=== PATIENT | female | born 1935 | race Caucasian/White ===

== ENCOUNTER 2016-11-29 10:06 | Emergency (ER) | payer OTHER, MEDICARE ==
[~2016-11-29] VITALS: Ht 137.2 cm; Wt 62.6 kg
[~2016-11-29 10:06] MED LIST: AMLODIPINE10 MG PO; CENTRUM SILVER1 TA1 PO; DOK100 M1 PO; FISH OIL CONCEN1 SGL PO; LOVENOX 4040 MG/0.4 SC; MAGNESIUM250 M1 PO; OMEPRAZOLE40 MG PO; PERCOCET 325 MG1 TA2 PO; PERCOCET 5-3251 EACH PO; VICODIN5-300 PO; VITAMIN D32000 I1 PO
--- NOTE | 2016-11-29 10:47 | ED MVC/FALL/TRAUMA COMPLAINT ---
History of Present Illness General Chief Complaint: Fall Stated Complaint: R SIDED PAIN S/P FALL Source: patient Exam Limitations: no limitations Vital Signs & Intake/Output Vital Signs & Intake/Output Vital Signs Date Time Temp Pulse Resp B/P Pulse O2 O2 Flow FiO2 Ox Delivery Rate 11/29 1314 98.2 93 18 168/72 98 Room Air 11/29 1021 97.0 72 20 148/70 98 Room Air Room Air Allergies Coded Allergies: NO KNOWN ALLERGIES (06/12/16) Reconcile Medications Amlodipine Besylate (Amlodipine) 10 MG TABLET 1 TAB PO DAILY BP (Reported) Multivitamin, Minerals, and (Centrum Silver) 1 TAB TAB 1 TAB PO DAILY SUPPLEMENT (Reported) Omeprazole 40 MG CAPSULE.DR 1 CAP PO DAILY HEARTBURN (Reported) Oxycodone HCl/Acetaminophen (Percocet 5-325 MG Tablet) 5 MG-325 MG TABLET 1 TAB PO BID PRN PAIN Promethazine HCl 6.25 MG/5 ML SYRUP 5 ML PO TID UNKNOWN (Reported) Triage Note: PT TO ED S/P "I TRIPPED OVER THE CAT". C/O RIGHT UPPER BACK PAIN. PT AMBULATORY TO TRIAGE WITH CANE, GAIT SLOW BUT STEADY. Triage Nurses Notes Reviewed? yes HPI: 80-year-old female arrived to triage the [facility] complaining of right rib pain after sustaining a fall at home. She states she was walking into her living room and her carpet was all bunched up due to the cats playing on it. She tripped and had a mechanical fall. She landed on her right side hitting her back against the floor. She denies hitting her head and she remembers the entire event. She denies any head neck chest or abdominal pain. She has full range of motion in all her extremities. The pain is in the right side back area. Worse with inspiration, movement and palpation. 09/01. tylenol ordered for pain. (CARLITOS RAMÍREZ APRN) Past History Travel History Traveled to [place] past 21 day No Medical History Any Pertinent Medical History? see below for history Neurological: NONE EENT: NONE Cardiovascular: hypertension, hyperlipidemia Respiratory: NONE Gastrointestinal: NONE Hepatic: NONE Renal: NONE Musculoskeletal: degen joint disease, osteoarthritis, osteoporosis Psychiatric: NONE Endocrine: NONE Blood Disorders: NONE Cancer(s): NONE TRAIN SYSTEM OPERATOR/Reproductive: NONE History of MRSA: No History of VRE: No History of CDIFF: No Influenza Vaccine: 08/23/15 Surgical History Surgical History: hysterectomy, knee replacement (b/l), shoulder surgery Psychosocial History Who do you live with Spouse Services at Home None What is your primary language Sami Tobacco Use: Never used ETOH Use: denies use Illicit Drug Use: denies illicit drug use Family History Hx Contributory? No (CARLITOS RAMÍREZ APRN) Review of Systems Review of Systems Constitutional: Reports: no symptoms. Eyes: Reports: no symptoms. Ears, Nose, Throat, Mouth: Reports: no symptoms. Respiratory: Reports: no symptoms. Cardiovascular: Reports: no symptoms. Gastrointestinal/Abdominal: Reports: no symptoms. Genitourinary: Reports: no symptoms. Musculoskeletal: Reports: see HPI, back pain. Skin: Reports: no symptoms. Neurological/Psychological: Denies: no symptoms. All Other Systems: Reviewed and Negative (CARLITOS RAMÍREZ APRN) Physical Exam Physical Exam General Appearance: well developed/nourished, alert, awake, anxious, mild distress Head: atraumatic, normal appearance Eyes: Bilateral: normal appearance, PERRL, EOMI. Ears, Nose, Throat, Mouth: hearing grossly normal, moist mucous membrane, Tympanic normal Neck: normal inspection, supple, full range of motion, normal alignment Respiratory: normal breath sounds, chest non-tender, no respiratory distress Cardiovascular: regular rate/rhythm, normal peripheral pulses Peripheral Pulses: 2+ radial (R), 2+ radial (L), 2+ tibialis posterior (R), 2+ tibialis posterior ( L), 2+ dorsalis pedis (R), 2+ dorsalis pedis (L) Gastrointestinal: normal bowel sounds, soft, non-tender Back: right posterior rib/back pain- see diagram Extremities: normal range of motion, pelvis stable Neurologic/Psych: no motor/sensory deficits, awake, alert, oriented x 3, normal gait, normal mood/affect Skin: intact, normal color, warm/dry Diagram Body: 1) Tenderness with no erythema or bruising Core Measures ACS in differential dx? No Severe Sepsis Present: No Septic Shock Present: No (CARLITOS RAMÍREZ APRN) Progress Differential Diagnosis: pnemothorax, RIB FRACTURE OR CONTUSION Plan of Care: Tylenol and ibuprofen for pain in the emergency department. Also to take at home has needed for mild pain and Percocet has needed for more severe pain. Diagnostic Imaging: Viewed by Me: Radiology Read. Discussed w/RAD: Radiology Read. Comments: PATIENT: DON ROTHMAN PRESENT AGE: 80 PATIENT ACCOUNT NO: [id number] : 35 LOCATION: [facility] ORDERING PHYSICIAN: CARLITOS RAMÍREZ APRN SERVICE DATE: 11/29/16 EXAM TYPE: RAD - XRY-CHEST XRAY, PA AND LATERAL; XRY-RIBS UNILATERAL-RIGHT EXAMINATION: XR CHEST XR RIBS, RIGHT CLINICAL INFORMATION: 80-year-old female, status post fall, complaining of posterior right-sided rib pain. COMPARISON: Chest done on 09/22/2015. Chest done on 04/12/2014. TECHNIQUE: 2 views of the chest. Frontal, oblique views of the right hemithoracic ribs (total of 4 images). FINDINGS: CHEST AND RIGHT-SIDED RIBS: Bibasilar linear airspace disease is present, new since prior study, may represent hypoventilatory, atelectatic changes. The remainder of the lung seay bilaterally appear clear, unchanged. There is specifically no evidence of any hemopneumothorax or lung contusion identified. The cardiomediastinal silhouette is within normal limits. Lower thoracic compression deformity is present, unchanged since 04/12/2014. The right hemithoracic rib series shows minimally displaced fracture involving the posterior lateral aspect of the right 9th rib. IMPRESSION: 1. Minimally displaced fracture seen involving the posterior lateral aspect of the right 9th rib. 2. No radiographic evidence of any superimposed acute hemopneumothorax or lung contusion. 3. Nonspecific bibasilar airspace disease is present likely represents hypoventilatory, atelectatic changes. DICTATED BY: RAI JACKSON MD DATE/TIME DICTATED:11/29/161240 HEALTH AND WELLNESS ADVISOR:JENNY DATE/TIME TRANSCRIBED:11/29/161240 CONFIDENTIAL, DO NOT COPY WITHOUT APPROPRIATE AUTHORIZATION. <Electronically signed in Other Vendor System> SIGNED BY: RAI JACKSON MD 11/29/16 1302 Tylenol only took away some of the pain so Motrin was given also. Explained x- ray results to patient and son. We'll give prescription for Percocet to go home with and instructions to follow up with Anderson Cordero MD on Thursday. Also gave instructions on deep breathing exercises. Case discussed with Dr. Crowe (CARLITOS RAMÍREZ APRN) Departure Departure Time of Disposition: 1311 Disposition: HOME OR SELF CARE Condition: Stable Clinical Impression Primary Impression: Rib fracture Qualifiers: Encounter type: initial encounter Rib fracture type: single rib Fracture type: closed Laterality: right Qualified Code: S22.31XA - Fracture of one rib, right side, initial encounter for closed fracture Referrals: ANABEL GARG,ANDERSON (PCP/Family) Additional Instructions: Please follow up with Anderson Cordero MD this week. Take Tylenol or ibuprofen as needed for mild pain. Please take Percocet as needed for more moderate to severe pain. I would start off with a half a tablet of Percocet before taking a whole one until you know how you feel. Every hour to 2 hours please shielded your right side with a pillow and take 10 good deep breaths. To this for the next 3-5 days. Please return to the emergency department for any increased pain, shortness of breath or any other concerning injuries. Departure Forms: Customer Survey General Discharge Information Prescriptions: Current Visit Scripts Oxycodone HCl/Acetaminophen (Percocet 5-325 MG Tablet) 1 TAB PO BID PRN PAIN #10 TAB (CARLITOS RAMÍREZ APRN) PA/MICROPHONE OPERATOR Co-Sign Statement Statement: ED Attending supervision documentation- [X] I saw and evaluated the patient. I have also reviewed all the pertinent lab results and diagnostic results. I agree with the findings and the plan of care as documented in the PA's/MICROPHONE OPERATOR's documentation. [X] I have reviewed the ED Record and agree with the PA's/MICROPHONE OPERATOR's documentation. [] Additions or exceptions (if any) to the PAs/MICROPHONE OPERATOR's note and plan are summarized below: [] (ZHANNA GARG,LILLI)
[2016-11-29] MEDS ORDERED: PROMETHAZI6.25 MG/5 PO (10:59)
--- NOTE | 2016-11-29 13:02 | RADIOLOGY REPORT ---
EXAMINATION: XR CHEST XR RIBS, RIGHT CLINICAL INFORMATION: 80-year-old female, status post fall, complaining of posterior right-sided rib pain. COMPARISON: Chest done on 09/22/2015. Chest done on 04/12/2014. TECHNIQUE: 2 views of the chest. Frontal, oblique views of the right hemithoracic ribs (total of 4 images). FINDINGS: CHEST AND RIGHT-SIDED RIBS: Bibasilar linear airspace disease is present, new since prior study, may represent hypoventilatory, atelectatic changes. The remainder of the lung seay bilaterally appear clear, unchanged. There is specifically no evidence of any hemopneumothorax or lung contusion identified. The cardiomediastinal silhouette is within normal limits. Lower thoracic compression deformity is present, unchanged since 04/12/2014. The right hemithoracic rib series shows minimally displaced fracture involving the posterior lateral aspect of the right 9th rib. IMPRESSION: 1. Minimally displaced fracture seen involving the posterior lateral aspect of the right 9th rib. 2. No radiographic evidence of any superimposed acute hemopneumothorax or lung contusion. 3. Nonspecific bibasilar airspace disease is present likely represents hypoventilatory, atelectatic changes.
[2016-11-29] MEDS ORDERED: PERCOCET 5-3251 EACH PO (13:12)
[2016-11-29 13:14] VITALS: BP 168/72
== END 2016-11-29 13:20 ==
LOC: ERH 10:06
DX: S22.31XA Fracture of one rib, right side, initial encounter for closed fracture (principal); R07.81 Pleurodynia; W18.09XA Striking against other object with subsequent fall, initial encounter; Y93.01 Activity, walking, marching and hiking
CPT/HCPCS: 71100-RT

== ENCOUNTER 2016-12-05 21:07 | Inpatient (IN) | payer OTHER, MEDICARE ==
[~2016-12-05] VITALS: Ht 162.6 cm; Wt 61.2 kg
[~2016-12-05 21:07] MED LIST changes: +PROMETHAZI6.25 MG/5 PO
[2016-12-05] MEDS ORDERED: CALCIUM500 M1 PO (21:38)
[2016-12-05] MEDS ORDERED: FISH OIL 1,2001 EACH PO (21:38)
--- NOTE | 2016-12-05 21:38 | NUR ---
TRIAGE: PT TO ER WITH SON C/C PAIN TO NECK, TRUNK AND ARMS S/P FALL SIGN CARPENTER. PT FELL IN BATHROOM AND WOULD NOT ALLOW SON TO HELP HER OR CALL 911. PT FELL TRIPPING OVER A CAT LAST WEEK AND FRACTURED HER RIBS. PT HAD EKG IN [place] AND WAS BROUGHT DIRECT TO [facility] RM 6 FOR ADDITIONAL EVAL. TAYLOR ANDERSON INTO EVALUATE.
[2016-12-05] MEDS ORDERED: MAGNESIUM250 M3 PO (21:39)
[2016-12-05] MEDS ORDERED: VITAMIN D2000 UNI1 PO (21:39)
--- NOTE | 2016-12-05 21:45 | ED MVC/FALL/TRAUMA COMPLAINT ---
History of Present Illness General Chief Complaint: Fall Stated Complaint: DIZZY, FELL IN BATHROOM, NECK, BACK AND CP, SOB Source: patient, family, old records Exam Limitations: no limitations Vital Signs & Intake/Output Vital Signs & Intake/Output Vital Signs Date Time Temp Pulse Resp B/P Pulse O2 O2 Flow FiO2 Ox Delivery Rate 12/05 2133 99.5 98 20 184/81 92 Room Air ED Intake and Output 12/06 0000 12/05 1200 Intake Total 0 Output Total Balance 0 Intake, Oral 0 Patient 135 lb Weight Allergies Coded Allergies: NO KNOWN ALLERGIES (06/12/16) Reconcile Medications Amlodipine Besylate (Amlodipine) 10 MG TABLET 1 TAB PO DAILY BP (Reported) Calcium Carbonate (Calcium) 500 MG CALCIUM (1,250 MG) TABLET 1 TAB PO DAILY SUPPLEMENT (Reported) Cholecalciferol (Vitamin D3) (Vitamin D) 2,000 UNIT TABLET 1 TAB PO DAILY SUPPLEMENT (Reported) Fish Oil/Dha/Epa (Fish Oil 1,200 MG Fish Oil) 1,200 MG-144 MG-216 MG CAPSULE 1 CAP PO DAILY SUPPLEMENT (Reported) Magnesium 250 MG TABLET 1 TAB PO DAILY SUPPLEMENT (Reported) Multivitamin, Minerals, and (Centrum Silver) 1 TAB TAB 1 TAB PO DAILY SUPPLEMENT (Reported) Omeprazole 40 MG CAPSULE.DR 1 CAP PO DAILY HEARTBURN (Reported) Oxycodone HCl/Acetaminophen (Percocet 5-325 MG Tablet) 5 MG-325 MG TABLET 1 TAB PO BID PRN PAIN Promethazine HCl 6.25 MG/5 ML SYRUP 5 ML PO TID UNKNOWN (Reported) Triage Note: TRIAGE: PT TO ER WITH SON C/C PAIN TO NECK, 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 PT FELL IN BATHROOM AND WOULD NOT ALLOW SON TO HELP HER OR CALL 911. PT FELL TRIPPING OVER A CAT LAST WEEK AND FRACTURED HER RIBS. PT HAD EKG IN [place] AND WAS BROUGHT DIRECT TO [facility] 6 FOR ADDITIONAL EVAL. TAYLOR ANDERSON INTO EVALUATE. Triage Nurses Notes Reviewed? yes Onset: Abrupt Duration: hour(s): (2), constant Timing: recent history Severity: moderate, severe Severity Numbers: 9 Injuries/Fall Location: neck, back Method of Injury: fall Loss of Consciousness: no loss of consciousness No Modifying Factors: none Associated Symptoms: dizziness HPI: 80-year-old female presents emergency room brought in by her son for evaluation after she had a unwitnessed fall in the bathroom just prior to arrival now presents complaining of upper and lower back and neck pain. She denies hitting her head no loss of consciousness. The patient denies any prodromal chest pain palpitations dizziness or lightheadedness prior to the fall and is unsure why she fell. However she states that she has felt dizzy since. The patient was seen here 6 days ago after she tripped over her cat and sustained a right ninth rib fracture. She denies any arm or leg pain no numbness or tingling. There's been no change in her mental status per her son she has not taken anything for her pain currently 9 out of [address] 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 No (ANGÉLICA MATHEWS) Review of Systems Review of Systems Constitutional: Reports: see HPI. All Other Systems: Reviewed and Negative Comments Review of systems: See HPI, All other systems negative. Constitutional, no chills no fever, no malaise HEENT: No visual changes no sore throat no congestion, Cardiovascular: No chest pain , no palpitation Skin,no rashes, no change in skin Respiratory: No dyspnea no cough no sputum GI: No nausea no vomiting, no diarrhea : No dysuria No hematuria, no frequency, no discharge Muscle skeletal: No joint pain, no joint swelling, back pain, neck pain, Neurologic: No numbness no headache Psych: No stress Heme/endocrine: No bruising no bleeding Immunology: No lymphadenopathy (ANGÉLICA MATHEWS) Physical Exam Physical Exam General Appearance: well developed/nourished, alert, awake, mild distress Comments: Well-developed well-nourished person in no acute distress HEENT: Normal EENT exam; PERRL, EOMI, no nystagmus. HEAD is atraumatic. moist mucous membranes. No raccoon eyes or moses signs no scalp hematoma or abrasions Neck: Supple, bilateral paracervical muscle tenderness no midline tenderness, normal range of motion without pain or tenderness Back: Nontender, no CVA tenderness. Full range of motion Cardiovascular: Regular rate and rhythms no murmurs rubs Respiratory: Chest tender to palpation over the right anterior chest wall and axilla, no crepitus, no ecchymosis, There were no bony deformities, no asymmetry. No respiratory distress. Patient speaking in full complete sentences. Breath sounds clear to auscultation bilaterally: NO W/R/R Abdomen: Soft, nontender nondistended, no appreciable organomegaly. Normal bowel sounds. No rebound/guarding, . Extremity: No edema, full range of motion of extremities, normal and equal pulses bilaterally, 5 out of 5 strength noted to bilateral upper and lower extremities Neuro: Alert oriented x3, motor sensory normal, cranial nerves II through XII grossly intact. There were no obvious focal neurologic abnormalities. Skin: No appreciable rash on exposed skin, skin is warm and dry. Psych: Mood and affect is normal, memory and judgment is normal. Core Measures ACS in differential dx? Yes Severe Sepsis Present: No Septic Shock Present: No (MONICA VAZQUEZ,ANGÉLICA) Progress Differential Diagnosis: aoritic dissection, abd injury, C/T/L spine injury, ext injury, ICH, pelvis injury, pnemothorax, spinal cord injury, ami, electrolyte abnoramlity Plan of Care: Orders Procedure Date/time Status Nothing by Mouth 12/06 B Active PT Evaluate & Treat 12/06 0700 Active Saline Lock 12/06 0010 Active Misc Message 12/06 0010 Active ED Holding Orders 12/06 0010 Active Admit to inpatient 12/06 0010 Active Vital Signs 12/06 0010 Active Code Status 12/06 0010 Active Patient Data 12/05 2353 Active Add-on Test (ER Only) 12/05 2347 Active MISTAKE 12/05 2323 Active CULTURE,URINE 12/05 2320 Active URINALYSIS 12/05 2227 Complete Intake & Output 12/05 2214 Active FingerStick- Glucose 01/13 2146 Active TROPONIN LEVEL 12/05 2111 Complete LIPASE 12/05 2111 Complete HEPATIC FUNCTION PANEL 12/05 2111 Complete CBC WITHOUT DIFFERENTIAL 12/05 2111 Complete BASIC METABOLIC PANEL 12/05 2111 Complete AMYLASE 12/05 2111 Complete EKG 12/05 2111 Active Current Medications Sig/Perla Start time Last Medication Dose Stop Time Status Admin Oxycodone/ 1 TAB ONCE ONE 12/05 2345 CAN Acetaminophen 12/05 2346 (Percocet) Laboratory Tests 12/05/162319: Urine Color YEL, Urine Clarity CLEAR, Urine pH 6.0, Ur Specific [place] 1.025, Urine Protein 30 H, Urine Ketones 15 H, Urine Nitrite POS H, Urine Bilirubin NEG, Urine Urobilinogen 0.2, Ur Leukocyte Esterase SMALL H, Ur Microscopic SEDIMENT EXAMINED, Urine RBC 1-3, Urine WBC 25-50 H, Ur Epithelial Cells FEW, Urine Mucus FEW, Urine Hemoglobin SMALL H, Urine Glucose NEG 12/05/162148: Anion Gap 13, Estimated GFR > 60, BUN/Creatinine Ratio 26.7 H, Glucose 138 H, Calcium 9.2, Total Bilirubin 0.6, Direct Bilirubin 0.3, AST 25, ALT 31, Alkaline Phosphatase 74, Troponin I 0.04, Total Protein 7.5, Albumin 4.1, Amylase 31, Lipase 81, CBC w Diff NO MAN DIFF REQ, RBC 4.16 L, MCV 71.9 L, MCH 23.0 L, RDW 16.5 H, MPV 7.6, Gran % 90.6 H, Lymphocytes % 6.3 L, Monocytes % 2.9, Eosinophils % 0.2, Basophils % 0 L, Absolute Granulocytes 14.2 H, Absolute Lymphocytes 1.0 L, Absolute Monocytes 0.5, Absolute Eosinophils 0, Absolute Basophils 0, PUBS MCHC 32.0 L Microbiology 12/05 2319 URINE ROUT: Urine Culture - RECD Labs ordered old records reviewed PTS H/H AT BASELINE Case was discussed with Dr. Lozano. 12/05/2016 10:43:17 PM discussed with the patient CAT scan results and labs to date c-collar was removed by me patient reports pain improved with morphine 12/05/2016 11:28:57 PM discussed with the patient at leave all of her lab results and CAT scan results. We attempted ambulation with the patient without success secondary to her pain patient was unable to ambulate around the ER. Discussed with her I believe again all of her lab results given her elevated white blood cell count, believe premature discharge would be medically harmful she lives at home alone requiring IV narcotics PT consult (MONICA VAZQUEZ,ANGÉLICA) Diagnostic Imaging: Viewed by Me: CT Scan. Discussed w/RAD: CT Scan. Radiology Impression: PATIENT: DON ROTHMAN PRESENT AGE: 80 PATIENT ACCOUNT NO: [id number] : 35 LOCATION: [facility] ORDERING PHYSICIAN: ANGÉLICA VAZQUEZ SERVICE DATE: 12/05/16 EXAM TYPE: CAT - CT CERV SPINE WO IV CONTRAST; CT HEAD WO IV CONTRAST EXAMINATION: CT HEAD WITHOUT CONTRAST CT CERVICAL SPINE WITHOUT CONTRAST CLINICAL INFORMATION: Fall and pain. Assess for intracranial bleed or fracture. COMPARISON: CT scan of the head 02/24. TECHNIQUE: Multidetector CT imaging of the head and cervical spine was performed without the use of intravenous contrast. Coronal and sagittal reformatted images were generated at the technologist workstation. DLP: 933.63 mGy-cm. FINDINGS: CT head: There is no evidence of acute intracranial hemorrhage or territorial infarction. No abnormal mass-effect or midline shift is seen. Campbell to white matter differentiation is well preserved. No extra-axial fluid collections are identified. There is commensurate prominence of the ventricles and sulci consistent with aabp-sq-xwiooqan diffuse volume loss. There are extensive areas of low attenuation in the periventricular and subcortical white matter bilaterally. These are most consistent with sequelae of chronic microvascular ischemic disease. There may be lacunar infarcts in the centra semiovale. There are no acute fractures. There is a small scalp contusion in the right parietal region. Bone mineralization is diffusely decreased. There are atheromatous calcifications of the cavernous internal carotid arteries. There have been bilateral lens extractions. The mastoid air cells and visualized portions of the paranasal sinuses are well-aerated. CT cervical spine: There is a mild dextroscoliosis. There are degenerative anterolistheses of C4 on C5 and C5 on C6. There is narrowing of intervertebral disc height at C6-C7. Vertebral body heights are maintained and there are no compression fractures. There are multilevel uncovertebral osteophytes and facet arthropathic changes. There is multilevel foraminal narrowing. The lateral masses of C1 and C2 are normally aligned and the dens is intact. Atlantooccipital alignment is normal. The prevertebral soft tissues are unremarkable. There are atheromatous calcifications of the aorta and carotid vessels. The visualized lung apices are well-aerated and there is no pneumothorax. IMPRESSION: 1. There are no acute bleeds or territorial infarcts. 2. There are sequelae of diffuse volume loss and severe chronic microvascular ischemic disease. 3. There is a scalp contusion in the right parietal region. No calvarial fractures are demonstrated. 4. There are no fractures or subluxations in the cervical spine. 5. There are multilevel spondylitic changes. DICTATED BY: DOMITILA CERDA MD DATE/TIME DICTATED:12/05/162223 TABLEAU DEVELOPER:JENNY DATE/TIME TRANSCRIBED:12/05/162223 CONFIDENTIAL, DO NOT COPY WITHOUT APPROPRIATE AUTHORIZATION. <Electronically signed in Other Vendor System> SIGNED BY: DOMITILA CERDA MD 12/05/162234, PATIENT: DON ROTHMAN PRESENT AGE: 80 PATIENT ACCOUNT NO: [id number] : 35 LOCATION: [facility] ORDERING PHYSICIAN: ANGÉLICA VAZQUEZ SERVICE DATE: 12/05/16 EXAM TYPE: CAT - CT ABD & PELVIS W/O IV CONTRAS; CT CHEST WO IV CONTRAST EXAMINATION: CT CHEST WITH CONTRAST CT ABDOMEN AND PELVIS WITH CONTRAST CLINICAL INFORMATION: Trauma. COMPARISON: CTA chest 12/2014. TECHNIQUE: Multidetector volumetric CT imaging of the chest, abdomen and pelvis was obtained after the administration of 50 mL of intravenous Ultravist without immediate adverse reactions. DLP: 555.59 mGy-cm. FINDINGS: Patient was imaged with the arms at the side which causes artifact. CT CHEST: Lungs: Low lung volume with bibasilar multifocal linear atelectasis. No dense consolidation. Mediastinum: No hematoma. No mass or inflammation. There is vascular calcification of the aorta and great vessels and coronary arteries. Pleura: Small right pleural effusion at lung base. Axilla: Streak artifact from bilateral shoulder replacement obscures the axillary areas in the upper chest. CT ABDOMEN AND PELVIS: LIVER, GALLBLADDER, AND BILIARY TREE: The liver is normal in size, shape, and attenuation. No focal hepatic lesion or biliary ductal dilatation is present. The gallbladder is unremarkable with no evidence of radiopaque gallstones, gallbladder wall thickening, or obvious pericholecystic inflammatory changes. PANCREAS: No acute change of the pancreas. No mass. No pancreatic duct dilatation. SPLEEN: Spleen normal in size and contour. No focal lesion. ADRENAL GLANDS: Adrenal glands are normal in size. No focal mass. KIDNEYS AND URETERS: Pedunculated cyst at the upper pole of the right kidney measuring 8 cm. No hydronephrosis. No renal or ureteral calculus. BLADDER: Unremarkable. GASTROINTESTINAL TRACT: No acute abnormality CT scan abdomen and pelvis. Moderate to large volume of stool in the colon. No bowel wall thickening or edema. No bowel obstruction. There is diverticulosis of the colon but no diverticulitis. The appendix is normal. The small bowel loops are unremarkable. MESENTERY: No focal inflammation. No free fluid. No free air. ABDOMINAL WALL: No significant hernia is appreciated. LYMPH NODES: Normal. VASCULAR: Atherosclerotic vascular calcifications of the aorta and iliac vessels without aneurysm. PELVIC VISCERA: Uterus is absent. No adnexal abnormality. OSSEOUS STRUCTURES: Compression deformity of T11 with near complete loss of height of the vertebrae. This is unchanged since prior CT study. No acute abnormality. No acute fracture. Multilevel degenerative spondylosis of the spine. Bilateral shoulder replacement. Orthopedic compression screw in the left hip. Multiple old healed rib fractures. IMPRESSION: No acute abnormality CT scan chest, abdomen and pelvis. DICTATED BY: SABRINA NÚÑEZ MD DATE/TIME DICTATED:12/05/162239 TABLEAU DEVELOPER:JENNY DATE/TIME TRANSCRIBED:12/05/162239 CONFIDENTIAL, DO NOT COPY WITHOUT APPROPRIATE AUTHORIZATION. <Electronically signed in Other Vendor System> SIGNED BY: SABRINA NÚÑEZ MD 12/05/162 Initial ED EKG: normal sinus at 80, no acute ST segment changes normal axis Prior EKG: unchanged (08/2015) (ANGÉLICA MATHEWS) Departure Departure Time of Disposition: 2350 Disposition: STILL A PATIENT Condition: Stable Clinical Impression Primary Impression: UTI (urinary tract infection) Secondary Impressions: Fall, Gait instability, Intractable back pain Referrals: ANDERSON LITTLE MD (PCP/Family) Departure Forms: Customer Survey General Discharge Information Admission Note Spoke With: AISHA OROSCO MD Documentation of Exam: Documentation of any treatments & extenuating circumstances including Concerns Regarding Discharge (functional status, medication knowledge or non-compliance, living conditions, etc.) that warrant an admission rather than observation: IV pain medication antibiotics physical therapy consult trend labs premature discharge would BE medically harmful given multiple falls this week patient lives at home alone and she is a fall risk (MONICA VAZQUEZ,ANGÉLICA) PA/FLOOR FINISHER Co-Sign Statement Statement: ED Attending supervision documentation- [] I saw and evaluated the patient. I have also reviewed all the pertinent lab results and diagnostic results. I agree with the findings and the plan of care as documented in the PA's/FLOOR FINISHER's documentation. [x] I have reviewed the ED Record and agree with the PA's/FLOOR FINISHER's documentation. [] Additions or exceptions (if any) to the PAs/FLOOR FINISHER's note and plan are summarized below: [] (MAVIS GARG,JHON Streeter)
[2016-12-05 22:04] LABS: ABSOLUTE BASOPHIL COUNT 0 /CUMM (0.0-0.2); ABSOLUTE EOSINOPHIL COUNT 0 /CUMM (0.0-0.7); ABSOLUTE GRANULOCYTE CT 14.2 /CUMM (1.4-6.5); ABSOLUTE MONOCYTE COUNT 0.5 /CUMM (0.10-0.60); BASOPHIL % 0 % (0.0-2.0); EOSINOPHIL % 0.2 % (0-5); HEMATOCRIT 29.9 % (37-47); MEAN CORPUSCULAR VOLUME 71.9 FL (81.0-99.0); MEAN PLATELET VOLUME 7.6 FL (7.4-10.4); PLATELET COUNT 449 /CUMM (130-400); RBC DISTRIBUTION WIDTH 16.5 % (11.5-14.5); RED BLOOD CELL CT 4.16 /CUMM (4.20-5.40); WHITE BLOOD CELL COUNT 15.7 /CUMM (4.8-10.8)
[2016-12-05 22:05] LABS: GRANULOCYTE % 90.6 % (42.2-75.2)
--- NOTE | 2016-12-05 22:15 | NUR ---
PT ASSISTED ON BEDPAN, CECILIA CARE PROVIDED.
--- NOTE | 2016-12-05 22:22 | NUR ---
PT MEDICATED PER EMAR.
--- NOTE | 2016-12-05 22:35 | CT SCAN REPORT ---
EXAMINATION: CT HEAD WITHOUT CONTRAST CT CERVICAL SPINE WITHOUT CONTRAST CLINICAL INFORMATION: Fall and pain. Assess for intracranial bleed or fracture. COMPARISON: CT scan of the head 02/24/2009. TECHNIQUE: Multidetector CT imaging of the head and cervical spine was performed without the use of intravenous contrast. Coronal and sagittal reformatted images were generated at the technologist workstation. DLP: 933.63 mGy-cm. FINDINGS: CT head: There is no evidence of acute intracranial hemorrhage or territorial infarction. No abnormal mass-effect or midline shift is seen. Campbell to white matter differentiation is well preserved. No extra-axial fluid collections are identified. There is commensurate prominence of the ventricles and sulci consistent with ccke-cb-syizvavn diffuse volume loss. There are extensive areas of low attenuation in the periventricular and subcortical white matter bilaterally. These are most consistent with sequelae of chronic microvascular ischemic disease. There may be lacunar infarcts in the centra semiovale. There are no acute fractures. There is a small scalp contusion in the right parietal region. Bone mineralization is diffusely decreased. There are atheromatous calcifications of the cavernous internal carotid arteries. There have been bilateral lens extractions. The mastoid air cells and visualized portions of the paranasal sinuses are well-aerated. CT cervical spine: There is a mild dextroscoliosis. There are degenerative anterolistheses of C4 on C5 and C5 on C6. There is narrowing of intervertebral disc height at C6-C7. Vertebral body heights are maintained and there are no compression fractures. There are multilevel uncovertebral osteophytes and facet arthropathic changes. There is multilevel foraminal narrowing. The lateral masses of C1 and C2 are normally aligned and the dens is intact. Atlantooccipital alignment is normal. The prevertebral soft tissues are unremarkable. There are atheromatous calcifications of the aorta and carotid vessels. The visualized lung apices are well-aerated and there is no pneumothorax. IMPRESSION: 1. There are no acute bleeds or territorial infarcts. 2. There are sequelae of diffuse volume loss and severe chronic microvascular ischemic disease. 3. There is a scalp contusion in the right parietal region. No calvarial fractures are demonstrated. 4. There are no fractures or subluxations in the cervical spine. 5. There are multilevel spondylitic changes.
--- NOTE | 2016-12-05 22:44 | NUR ---
TAYLOR ANDERSON AT BEDSIDE.
--- NOTE | 2016-12-05 23:22 | CT SCAN REPORT ---
EXAMINATION: CT CHEST WITH CONTRAST CT ABDOMEN AND PELVIS WITH CONTRAST CLINICAL INFORMATION: Trauma. COMPARISON: CTA chest 05/24/2015. TECHNIQUE: Multidetector volumetric CT imaging of the chest, abdomen and pelvis was obtained after the administration of 50 mL of intravenous Ultravist without immediate adverse reactions. DLP: 555.59 mGy-cm. FINDINGS: Patient was imaged with the arms at the side which causes artifact. CT CHEST: Lungs: Low lung volume with bibasilar multifocal linear atelectasis. No dense consolidation. Mediastinum: No hematoma. No mass or inflammation. There is vascular calcification of the aorta and great vessels and coronary arteries. Pleura: Small right pleural effusion at lung base. Axilla: Streak artifact from bilateral shoulder replacement obscures the axillary areas in the upper chest. CT ABDOMEN AND PELVIS: LIVER, GALLBLADDER, AND BILIARY TREE: The liver is normal in size, shape, and attenuation. No focal hepatic lesion or biliary ductal dilatation is present. The gallbladder is unremarkable with no evidence of radiopaque gallstones, gallbladder wall thickening, or obvious pericholecystic inflammatory changes. PANCREAS: No acute change of the pancreas. No mass. No pancreatic duct dilatation. SPLEEN: Spleen normal in size and contour. No focal lesion. ADRENAL GLANDS: Adrenal glands are normal in size. No focal mass. KIDNEYS AND URETERS: Pedunculated cyst at the upper pole of the right kidney measuring 8 cm. No hydronephrosis. No renal or ureteral calculus. BLADDER: Unremarkable. GASTROINTESTINAL TRACT: No acute abnormality CT scan abdomen and pelvis. Moderate to large volume of stool in the colon. No bowel wall thickening or edema. No bowel obstruction. There is diverticulosis of the colon but no diverticulitis. The appendix is normal. The small bowel loops are unremarkable. MESENTERY: No focal inflammation. No free fluid. No free air. ABDOMINAL WALL: No significant hernia is appreciated. LYMPH NODES: Normal. VASCULAR: Atherosclerotic vascular calcifications of the aorta and iliac vessels without aneurysm. PELVIC VISCERA: Uterus is absent. No adnexal abnormality. OSSEOUS STRUCTURES: Compression deformity of T11 with near complete loss of height of the vertebrae. This is unchanged since prior CT study. No acute abnormality. No acute fracture. Multilevel degenerative spondylosis of the spine. Bilateral shoulder replacement. Orthopedic compression screw in the left hip. Multiple old healed rib fractures. IMPRESSION: No acute abnormality CT scan chest, abdomen and pelvis.
--- NOTE | 2016-12-05 23:45 | NUR ---
AMBULATES WITHOUT DIFF REQUESTS PAIN MED SITS IN CHAIR MUCH MORE COMF.
--- NOTE | 2016-12-06 00:04 | History & Physical ---
GEORGE GARG,[facility] [place] 12/06/16 0004: General Information and HPI MD Statement: I have seen and personally examined DON ROTHMAN and documented this H&P. The patient is a 80 year old F who presented with a patient stated chief complaint of near syncopal episode. Source of Information: patient, family, old records Exam Limitations: no limitations History of Present Illness: 80 y/o F with PMHx of HTN, GERD, osteoarthritis, osteoporosis s/p bilateral total knee and bilateral total shoulder arthroplasties and left hip fracture s/p IM who presents after fall. This evening, several hours prior to current presentation, patient was standing in the bathroom and brushing her teeth when she passed out all of a sudden. She woke up about 30 seconds later and found herself on the floor in severe pain. It is unclear whether she lost consciousness during episode. She denies chest pain, palpitations, shortness of breath and lightheadedness leading up to the episode. She also denies bladder/ bowel incontinence and tongue biting during the episode and reports that she was not confused afterwards. Of note, patient has been having URI symptoms and decreased PO intake for the past few days leading up to current presentation. She was seen in the ED approximately 6 days ago after a mechanical fall in which she tripped over her cat and was diagnosed with right ninth rib fracture. She still has significant pain at the fracture site and has been taking opioids. She endorses constipation and reports that she has not had a bowel movement in two days. She denies dysuria but endorses increased urinary frequency and chills. Allergies/Medications Allergies: Coded Allergies: NO KNOWN ALLERGIES (06/12/16) Home Med list Amlodipine Besylate (Amlodipine) 10 MG TABLET 1 TAB PO DAILY BP (Reported) Calcium Carbonate (Calcium) 500 MG CALCIUM (1,250 MG) TABLET 1 TAB PO DAILY SUPPLEMENT (Reported) Cholecalciferol (Vitamin D3) (Vitamin D) 2,000 UNIT TABLET 1 TAB PO DAILY SUPPLEMENT (Reported) Fish Oil/Dha/Epa (Fish Oil 1,200 MG Fish Oil) 1,200 MG-144 MG-216 MG CAPSULE 1 CAP PO DAILY SUPPLEMENT (Reported) Magnesium 250 MG TABLET 1 TAB PO DAILY SUPPLEMENT (Reported) Multivitamin, Minerals, and (Centrum Silver) 1 TAB TAB 1 TAB PO DAILY SUPPLEMENT (Reported) Omeprazole 40 MG CAPSULE.DR 1 CAP PO DAILY HEARTBURN (Reported) Oxycodone HCl/Acetaminophen (Percocet 5-325 MG Tablet) 5 MG-325 MG TABLET 1 TAB PO BID PRN PAIN Promethazine HCl 6.25 MG/5 ML SYRUP 5 ML PO TID UNKNOWN (Reported) Past History Travel History Traveled to [place] past 21 day No Medical History Neurological: NONE EENT: NONE Cardiovascular: hypertension, hyperlipidemia Respiratory: NONE Gastrointestinal: NONE Hepatic: NONE Renal: NONE Musculoskeletal: degen joint disease, fracture (L hip s/p IMHS, R 9th rib), osteoarthritis, osteoporosis Psychiatric: NONE Endocrine: NONE Blood Disorders: NONE Cancer(s): NONE TRANSITIONS RN CARE COORDINATOR/Reproductive: uterine/bladder prolapse, stress urinary incontinence History of MRSA: No History of VRE: No History of CDIFF: No Isolation History: Standard Surgical History Surgical History: hysterectomy, knee replacement (b/l total knee arthroplasty), shoulder surgery, left hip IMHS Past Family/Social History Psychosocial History Where do you live? Home Who Do You Live With? self Services at Home: None Functional Ability ADLs Independent: dressing, eating, toileting, bathing. Ambulation: cane IADLs Independent: shopping, housework, finances, food prep, telephone, medication admin. Review of Systems Review of Systems Constitutional: Reports: chills, weakness. Denies: fever. EENTM: Reports: see HPI. Cardiovascular: Denies: chest pain, palpitations. Respiratory: Denies: short of breath. GI: Reports: constipation, nausea, vomiting. Denies: abdominal pain, diarrhea. Genitourinary: Reports: frequency. Denies: dysuria. Musculoskeletal: Reports: see HPI. Skin: Reports: no symptoms. Neurological/Psychological: Reports: no symptoms. Hematologic/Endocrine: Reports: no symptoms. Immunologic/Allergic: Reports: no symptoms. All Other Systems: Reviewed and Negative Exam & Diagnostic Data Last 24 Hrs of Vital Signs/I&O Vital Signs Date Time Temp Pulse Resp B/P Pulse O2 O2 Flow FiO2 Ox Delivery Rate 12/06 0205 97.6 110 20 114/66 91 Room Air 12/06 0106 97.6 100 18 165/77 93 Room Air 12/05 2134 99.5 98 20 184/81 92 Room Air Intake & Output 12/06 0800 12/06 0000 12/05 1600 Intake Total 0 Output Total Balance 0 Intake, Oral 0 Patient 61.235 kg Weight Physical Exam General Appearance Alert, Oriented X3, Mild Distress HEENT Dry Mucous Membranes Neck Supple Cardiovascular Normal S1, Normal S2, Tachycardic Lungs Clear to Auscultation Abdomen Soft, No Tenderness, Positive Bowel Sounds Neurological No Gross Focal Deficits Noted Extremities No Clubbing, No Cyanosis, No Edema Last 24 Hrs of Labs/Julio: Laboratory Tests 12/05/162319: Urine Color YEL, Urine Clarity CLEAR, Urine pH 6.0, Ur Specific [place] 1.025, Urine Protein 30 H, Urine Ketones 15 H, Urine Nitrite POS H, Urine Bilirubin NEG, Urine Urobilinogen 0.2, Ur Leukocyte Esterase SMALL H, Ur Microscopic SEDIMENT EXAMINED, Urine RBC 1-3, Urine WBC 25-50 H, Ur Epithelial Cells FEW, Urine Mucus FEW, Urine Hemoglobin SMALL H, Urine Glucose NEG 12/05/16 2149: Anion Gap 13, Estimated GFR > 60, BUN/Creatinine Ratio 26.7 H, Glucose 138 H, Calcium 9.2, Total Bilirubin 0.6, Direct Bilirubin 0.3, AST 25, ALT 31, Alkaline Phosphatase 74, Troponin I 0.04, Total Protein 7.5, Albumin 4.1, Amylase 31, Lipase 81, CBC w Diff NO MAN DIFF REQ, RBC 4.16 L, MCV 71.9 L, MCH 23.0 L, RDW 16.5 H, MPV 7.6, Gran % 90.6 H, Lymphocytes % 6.3 L, Monocytes % 2.9, Eosinophils % 0.2, Basophils % 0 L, Absolute Granulocytes 14.2 H, Absolute Lymphocytes 1.0 L, Absolute Monocytes 0.5, Absolute Eosinophils 0, Absolute Basophils 0, PUBS MCHC 32.0 L Microbiology 12/05 2319 URINE ROUT: Urine Culture - RECD Diagnostic Data EKG Results NSR HR 83 Probable left atrial abnormality Left axis deviation LVH with secondary repolarization abnormality QTc [address] HEAD AND CERVICAL SPINE W/O CONTRAST: 1. There are no acute bleeds or territorial infarcts. 2. There are sequelae of diffuse volume loss and severe chronic microvascular ischemic disease. 3. There is a scalp contusion in the right parietal region. No calvarial fractures are demonstrated. 4. There are no fractures or subluxations in the cervical spine. 5. There are multilevel spondylitic changes. CT CHEST/ABDOMEN/PELVIS W/O IV CONTRAST: No acute abnormality CT scan chest, abdomen and pelvis. Assessment/Plan Assessment: 80 y/o F with PMHx of HTN, GERD, osteoarthritis, osteoporosis s/p bilateral total knee and bilateral total shoulder arthroplasties and left hip fracture s/p IMHS who presents after fall. #Fall: Represents syncope/pre-syncope based on patient's symptoms. Differential includes cardiac arrhythmia, vasovagal syncope and orthostatic hypotension. CT Head/C-Spine/Chest/Abdomen/Pelvis with no acute fracture or abnormality. S/p bedside swallow eval. Initial troponin negative and EKG with no ST-T wave abnormalities. * Cardiology consulted. Appreciate their recs. * Transfer to telemetry for continuous cardiac monitoring to rule out arrhythmia. * ECHO ordered to evaluate for structural cardiac abnormalities. * Orthostatic vitals. * PT/OT consult. * Trend troponins and EKG. #UTI: Urinalysis significant for pyuria with WBC 25-50. Afebrile but with significant leukocytosis (WBC 15.7). S/p PO ciprofloxacin in the ED. * Follow UCx. * Start ceftriaxone 1 g IV QD. #Rib fracture: Fracture of right ninth rib. * Lidocaine 5% patch. * Tylenol 650 mg PO Q6H PRN for mild pain (scale 1-3) * Tylenol 1 g IV Q6H PRN for moderate pain (scale 4-6) * Morphine 2 mg IV Q4H PRN for severe pain (scale 7-10) #HTN: BP elevated to 184/81 on admission. * Continue prior to admission amlodipine 10 mg PO QD. #Osteoporosis: S/p bilateral total knee and shoulder arthroplasties and left hip fracture s/p IMHS. * Continue prior to admission vitamin D3 2 g PO QD and calcium carbonate 500 mg PO QD. #Constipation: Secondary to opioids that patient was receiving for rib fracture. * Aggressive bowel regimen with Miralax, Senokot and Docusate. #GERD: * Continue prior to admission omeprazole 40 mg PO QD. Diet: Heart Healthy Fluids: NS @ 75 cc/hr DVT PPx: HSQ and ALPs CODE: FULL As Ranked By This Provider Problem List: 1. Fall 2. UTI (urinary tract infection) 3. Right rib fracture 4. Constipation Core Measures/Miscellaneous Acute Coronary Syndrome ACS Diagnosis: No Cerebrovascular Accident CVA/TIA Diagnosis: No Congestive Heart Failure CHF Diagnosis: No Venous Thromboembolism VTE Risk Factors: Acute medical illness, Age > 40 VTE Prophylaxis Ordered Inpt: Mech & Pharm No Mech VTE prophylaxis d/t: No contraindications No VTE Pharm Prophylaxis d/t: No contraindications VTE Diagnosis: No VTE Type: NONE VTE Confirmed by (Test): NONE Severe Sepsis Severe Sepsis Present: No Septic Shock Septic Shock Present: No Miscellaneous Documentation Attending Case Discussed With: AISHA OROSCO MD Primary Care Physician: ANDERSON LITTLE MD Patient sees these Specialists Toe Puller Toby Nair MD Level of Patient Care: Telemetry KIRSTEN HER 12/06/16 0127: Resident Review Statement Resident Statement: examined this patient, discussed with tax intern, agreed with tax intern, discussed with family, reviewed EMR data (avail), discussed with nursing , discussed with case mgmt, reviewed images, amended to note Other Findings: 80-year-old woman presented with syncope, weakness and fall. Her past medical history significant for hypertension, gastroesophageal reflux disease and multiple joint replacements, osteoporosis (for scan on 2014 showed a T score of -2.6). Patient was at her normal state of health. Last week she had a mechanical fall which results in mechanical trauma and rib fracture on the right side. Patient was started on by mouth opiate pain medication that caused constipation. Patient reports progressive loss of appetite, poor by mouth intake, and 1 or 2 episodes of vomiting yesterday (mainly food no clots) and nauseousness. According to her son in addition to the aforementioned picture she had an episode of URI that's further decrease her by mouth intake and ambulation. Last evening patient blacked out, while she was brushing her teeth and fell in the bathroom. she denies any precrding SOb, palpitation, CP, lightheadedness. Immediately gained counsiousness and did not have focal neurologis deficit, toungue bite, or loss bladder or bowel control and was not confused afterward. Patient otherwise has been asymptomatic and denies fever, chills, urinary symptoms. ROS: complains of severe right-sided rib pain, weakness and constipation. Vital signs temperature of 99.5, pulse 98, respiratory 20, blood pressure 184/81 , saturation 92% in RA Ph/Ex: Anxious, and in mild-moderate distress. Sclrea pale, Mucous membrane dry; CVS: S1S2 regular; early systolic ejection murmur w/ radiation to neck; Lungs ( limited) clear; abd: hypoactiev, firm, no tenderness; No edema, no grosss abnormalities Pertinent Data: UA: Ketones 15, nitrate positive WBC 25-50 BEP: Sodium 131, potassium 4.1, BUN 16, creatinine 0.6, BUN creatinine ratio 26.7 WBC 15.7 with left shift but no bandemia, hemoglobin 9.6 MCV 71, hematocrit 29.[address] scan of the abdominopelvic and chest and cervical CT: Normal no acute pathology Head CT was negative EK NSRR, Left axis deviation, No acute ST,T seg change, no prolongation of the intervals Assessment and plan 81-year-old woman was admitted for syncope/pre-syncope possibly due to UTI and dehydration, and weakness. #1 syncope: Dehydraion Vs Arrhythmia Vs Vasovagal Vs Neurologic. Patient does not Have any focal neurologic. Dehydraion could actually percipitated her condition, however, arrhythmia should be R/O. Transfer to tele; 24 h playground monitor to R/O arrhythmia Cardiology consult-in the am to assess the cause of syncope/near-syncope Obtain Echo check troponin-negative fall percussion Check orthostatic Continue IV hydration with normal saline rate of 75-100 mL per hour #2 UTI Cefteriaxone 1000 mg IV daily Follow urine culture #3 hypertension Continue amlodipine 10 mg by mouth daily; start from today at 10 AM #4 constipation Stop all the opiate pain medication Continue IV hydration Started patient on full bowel regimen #5 GERD Continue omeprazole 40 mg by mouth daily #6 calcium deficiency and vitamin D deficiency Continue D3 2000 units daily Continue calcium carbonate 500mg daily Full code DVT prophylaxis enoxaparin 40 units subcutaneous daily AISHA OROSCO 12/06/16 0709: Attending MD Review Statement Attending Statement Attending MD Statement: examined this patient, discuss w/resident/PA/COMMUNITY ENGAGEMENT COORDINATOR, agreed w/resident/PA/COMMUNITY ENGAGEMENT COORDINATOR, reviewed EMR data (avail), reviewed images, amended to note Attending Assessment/Plan: CC: Near syncopal episode PMH: HTN, GERD, OA, osteoporosis Patient states that she has been having some upper respiratory symptoms and decreased by mouth intake since last 2-3 days. Today she felt dizzy and she does not recall how she fell down, she did not trip on anything next thing, all she remembers that she woke up on the floor. Patient's right-sided rib pain worsened after this fall. Otherwise she was ambulating well at home after her previous discharge from ER, 1 week back. Denies chest pain, palpitations, fever. Patient endorses chills and frequency in urination and constipation. Patient has not passed stool in last 2 days. Vitals: Afebrile, mild tachycardia, RR, BP, O2 saturation within normal range. On examination: A O 3, patient appears in pain. No acute distress, no focal neurological deficit, neck supple, no lymphadenopathy, mucosa dry. CVS: S1-S2, RRR. RS: Clear to auscultate. Abdomen: Soft, NT, ND, bowel sounds present, no dependent edema. Labs: CBC 15.7, hemoglobin 9.6, otherwise BMP and LFT unremarkable. EKG showed no acute changes. Imaging: CT head, CT cervical spine, CT chest, abdomen and pelvis: Shows no acute abnormality. A and P #1 presyncope / syncope : Patient does not recall the fall, but at the same time denies loss of consciousness. She has dizziness prior to fall, and only remembers waking up on the floor. Initially admitted on GEN med according to ER recommendation, but patient needs telemetry monitoring, 2-D echo, cardiac consult, trend cardiac enzymes, OT PT evaluation #2 UTI: Patient has significant leukocytosis, urinary frequency, an episode of chills at home. Obtain urine culture, continue ceftriaxone IV. Continue gentle hydration. #3 constipation: Probably secondary to opiates, continue senna, Dulcolax, MiraLAX. #4 continue her home medications, adequate pain control for recent rib fracture, DVT prophylaxis
--- NOTE | 2016-12-06 00:07 | NUR ---
BACK TO BED. MEDICATED WITH MORPHINE FOR RETURNING PAIN
--- NOTE | 2016-12-06 00:17 | NUR ---
MEDICATED WITH CIPRO ORDERED
--- NOTE | 2016-12-06 00:31 | NUR ---
HOUSESTAFF HERE TO EVALUATE
[2016-12-06 02:05] VITALS: BP 114/66
[2016-12-06 03:35] VITALS: BP 110/60
[2016-12-06 04:13] LABS: ABSOLUTE BASOPHIL COUNT 0 /CUMM (0.0-0.2); ABSOLUTE EOSINOPHIL COUNT 0 /CUMM (0.0-0.7); ABSOLUTE GRANULOCYTE CT 9.2 /CUMM (1.4-6.5); ABSOLUTE LYMPH COUNT 1.2 /CUMM (1.2-3.4); ABSOLUTE MONOCYTE COUNT 0.5 /CUMM (0.10-0.60); BASOPHIL % 0.3 % (0.0-2.0); EOSINOPHIL % 0.2 % (0-5); GRANULOCYTE % 83.7 % (42.2-75.2); HEMATOCRIT 32.5 % (37-47); MEAN CORPUSCULAR HGB 23.3 PG (27.0-31.0); MEAN CORPUSCULAR HGB CONC 32.4 G/DL (33.0-37.0); MEAN CORPUSCULAR VOLUME 71.8 FL (81.0-99.0); MEAN PLATELET VOLUME 7.1 FL (7.4-10.4); PLATELET COUNT 442 /CUMM (130-400); RBC DISTRIBUTION WIDTH 16.5 % (11.5-14.5); RED BLOOD CELL CT 4.53 /CUMM (4.20-5.40); WHITE BLOOD CELL COUNT 10.9 /CUMM (4.8-10.8)
[2016-12-06 04:23] LABS: PT 11.6 SEC (9.4-12.5); PTT 29 SEC (25-37)
--- NOTE | 2016-12-06 07:11 | Admission Certification ---
Admission Certification Certification Statement - As attending physician, I certify that at the time of - admission, based on clinical presentation, severity of - symptoms, need for further diagnostic testing and - therapeutic interventions, and risk of adverse outcomes - without in-hospital treatment, in my clinical assessment, - this patient requires an acute hospital stay for a minimum - of two nights or longer. I have also considered psychsocial - factors such as support system, advanced age, financial - issues, cognitive issues, and failed out-patient treatments, - past re-admission history, safety of patient, and lack of - compliance as applicable. Specific rationale supporting this admission is: fall, presyncope/syncope, UTI
[2016-12-06 08:22] VITALS: BP 130/60
[2016-12-06 10:48] LABS: PTT 63 SEC (25-37)
--- NOTE | 2016-12-06 12:37 | NUR ---
Eval canceled today. Nurse notes that pt is in a lot of pain, has not really been able to move. Pt approached by therapist in order to complete PT eval but notes that she is in too much pain to do anything. She feels that maybe in a day or 2 she may be able to move around but for now she is in unbearable pain. Will cont to follow in order to complete evaluation.
--- NOTE | 2016-12-06 12:41 | Cons- Cardiology ---
General Information and HPI Consulting Request Date of Consult: 12/06/16 Requested By: AISHA OROSCO MD Reason for Consult: Possible syncope and positive troponin I. Source of Information: patient, old records Exam Limitations: clinical condition, painful right side History of Present Illness: Mrs. Kyleigh Elaine is an 80-year-old female with a history of hypertension, dyslipidemia, gastroesophageal reflux disease, osteoarthritis, osteoporosis, s/p bilateral knee and bilateral total shoulder arthroplasties, left hip fracture s/p intra-medullary screw placement, multiple falls, s/p ninth right rib fracture after tripping over her cat at home on 11/29/2016 who returned to the ED last night following a suspected syncopal episode. After her 11/29/2016 emergency visit, she states that she remained in a lot of pain and was not taking well by mouth. She also developed upper respiratory symptoms that included a cough productive of whitish sputum. She denied any fever, chills, etc. Last night while getting ready for bed she had gone to the bathroom to brush her teeth and recalls feeling transiently "dizzy". She then "came to" on the floor without any urinary/fecal incontinence, but thinks she again hit her right side as this was very painful. She was aware of her surroundings, but felt she should seek medical evaluation. She denies any history of coronary, valvular, dysrhythmic/conduction disease, or cardiomyopathy. Allergies/Medications Allergies: Coded Allergies: NO KNOWN ALLERGIES (06/12/16) Home Med List: Amlodipine Besylate (Amlodipine) 10 MG TABLET 1 TAB PO DAILY BP (Reported) Calcium Carbonate (Calcium) 500 MG CALCIUM (1,250 MG) TABLET 1 TAB PO DAILY SUPPLEMENT (Reported) Cholecalciferol (Vitamin D3) (Vitamin D) 2,000 UNIT TABLET 1 TAB PO DAILY SUPPLEMENT (Reported) Fish Oil/Dha/Epa (Fish Oil 1,200 MG Fish Oil) 1,200 MG-144 MG-216 MG CAPSULE 1 CAP PO DAILY SUPPLEMENT (Reported) Magnesium 250 MG TABLET 1 TAB PO DAILY SUPPLEMENT (Reported) Multivitamin, Minerals, and (Centrum Silver) 1 TAB TAB 1 TAB PO DAILY SUPPLEMENT (Reported) Omeprazole 40 MG CAPSULE.DR 1 CAP PO DAILY HEARTBURN (Reported) Oxycodone HCl/Acetaminophen (Percocet 5-325 MG Tablet) 5 MG-325 MG TABLET 1 TAB PO BID PRN PAIN Promethazine HCl 6.25 MG/5 ML SYRUP 5 ML PO TID UNKNOWN (Reported) Review of Systems Review of Systems: A 14 point system review was obtained and was noncontributory, other than as above. Past History Travel History Traveled to [place] past 21 day No Medical History Blood Transfusion Hx: No Neurological: NONE EENT: NONE Cardiovascular: hypertension, hyperlipidemia Respiratory: NONE Gastrointestinal: NONE Hepatic: NONE Renal: NONE Musculoskeletal: degen joint disease, fracture (L hip s/p IMHS, R 9th rib), osteoarthritis, osteoporosis Psychiatric: NONE Endocrine: NONE Blood Disorders: NONE Cancer(s): NONE COUNSELING CENTER DIRECTOR/Reproductive: uterine/bladder prolapse, stress urinary incontinence Surgical History Surgical History: hysterectomy, knee replacement (b/l total knee arthroplasty), shoulder surgery L hip [facility] Psychosocial History Where Do You Live? Home Who Do You Live With? self Services at Home: None Smoking Status: Former Smoker Functional Ability ADLs Independent: dressing, eating, toileting, bathing. Ambulation: cane IADLs Independent: shopping, housework, finances, food prep, telephone, medication admin. Exam & Diagnostic Data Vital Signs and I&O Vital Signs Date Time Temp Pulse Resp B/P Pulse O2 O2 Flow FiO2 Ox Delivery Rate 12/06 0916 80 130/60 12/06 0822 98.1 80 20 130/60 90 Room Air 12/06 0800 92 Room Air 12/06 0335 98.2 94 20 110/60 91 Room Air 12/06 0332 Room Air 12/06 0205 97.6 110 20 114/66 91 Room Air 12/06 0106 97.6 100 18 165/77 93 Room Air 12/05 2134 99.5 98 20 184/81 92 Room Air Intake & Output 12/06 1600 12/06 0800 12/06 0000 12/05 1600 12/05 0800 12/05 0000 Intake Total 638 0 Output Total Balance 638 0 Intake, IV 538 Intake, Oral 100 0 Number 0 Bowel Movements Patient 135 lb 135 lb Weight Physical Exam: Well-developed, well-nourished elderly female in no acute distress with nasal oxygen in place. Vital signs: See above. HEENT: Normocephalic, atraumatic, EOMI, slightly dry mucous membranes. Neck: No JVD. Transmitted systolic murmur versus soft bilateral bruits. Lungs: Clear to auscultation. Heart: S1, S2 (regular) with grade 2/6 systolic ejection type murmur. No gallop or rub appreciated. PMI [facility]. Abdomen: Soft, nontender, positive bowel sounds. Extremities: No edema. Labs/Julio Results: Laboratory Tests 12/06 12/06 12/06 1005 0355 0355 Chemistry Sodium (137 - 145 mmol/L) 138 Potassium (3.5 - 5.1 mmol/L) 4.3 Chloride (98 - 107 mmol/L) 97 L Carbon Dioxide (22 - 30 mmol/L) 28 Anion Gap (5 - 16) 13 BUN (7 - 17 mg/dL) 13 Creatinine (0.5 - 1.0 mg/dL) 0.6 Estimated GFR (>60 ml/min) > 60 BUN/Creatinine Ratio (7 - 25 %) 21.7 Troponin I (< 0.11 ng/ml) 0.09 Coagulation PT (9.4 - 12.5 SEC) 11.6 INR (0.90 - 1.19) 1.11 APTT (25 - 37 SEC) 63 H 29 Hematology CBC w Diff MAN DIFF ORDERED WBC (4.8 - 10.8 /CUMM) 10.9 H RBC (4.20 - 5.40 /CUMM) 4.53 Hgb (12.0 - 16.0 G/DL) 10.6 L Hct (37 - 47 %) 32.5 L MCV (81.0 - 99.0 FL) 71.8 L MCH (27.0 - 31.0 PG) 23.3 L RDW (11.5 - 14.5 %) 16.5 H Plt Count (130 - 400 /CUMM) 442 H MPV (7.4 - 10.4 FL) 7.1 L Gran % (42.2 - 75.2 %) 83.7 H Lymphocytes % (20.5 - 51.1 %) 11.2 L Monocytes % (1.7 - 9.3 %) 4.6 Eosinophils % (0 - 5 %) 0.2 Basophils % (0.0 - 2.0 %) 0.3 Absolute Granulocytes (1.4 - 6.5 /CUMM) 9.2 H Absolute Lymphocytes (1.2 - 3.4 /CUMM) 1.2 Absolute Monocytes (0.10 - 0.60 /CUMM) 0.5 Absolute Eosinophils (0.0 - 0.7 /CUMM) 0 Absolute Basophils (0.0 - 0.2 /CUMM) 0 Platelet Estimate (ADEQUATE) INCREASED Hypochromic-Microcytic 1+ Ovalocytes 2+ PUBS MCHC (33.0 - 37.0 G/DL) 32.4 L 12/05 12/05 2320 2149 Chemistry Sodium (137 - 145 mmol/L) 131 L Potassium (3.5 - 5.1 mmol/L) 4.1 Chloride (98 - 107 mmol/L) 93 L Carbon Dioxide (22 - 30 mmol/L) 26 Anion Gap (5 - 16) 13 BUN (7 - 17 mg/dL) 16 Creatinine (0.5 - 1.0 mg/dL) 0.6 Estimated GFR (>60 ml/min) > 60 BUN/Creatinine Ratio (7 - 25 %) 26.7 H Glucose (65 - 99 mg/dL) 138 H Calcium (8.4 - 10.2 mg/dL) 9.2 Total Bilirubin (0.2 - 1.3 mg/dL) 0.6 Direct Bilirubin (< 0.4 mg/dL) 0.3 AST (14 - 36 U/L) 25 ALT (9 - 52 U/L) 31 Alkaline Phosphatase (<127 U/L) 74 Troponin I (< 0.11 ng/ml) 0.04 Total Protein (6.3 - 8.2 g/dL) 7.5 Albumin (3.5 - 5.0 g/dL) 4.1 Amylase (30 - 110 U/L) 31 Lipase (23 - 300 U/L) 81 Hematology CBC w Diff NO MAN DIFF REQ WBC (4.8 - 10.8 /CUMM) 15.7 H RBC (4.20 - 5.40 /CUMM) 4.16 L Hgb (12.0 - 16.0 G/DL) 9.6 L Hct (37 - 47 %) 29.9 L MCV (81.0 - 99.0 FL) 71.9 L MCH (27.0 - 31.0 PG) 23.0 L RDW (11.5 - 14.5 %) 16.5 H Plt Count (130 - 400 /CUMM) 449 H MPV (7.4 - 10.4 FL) 7.6 Gran % (42.2 - 75.2 %) 90.6 H Lymphocytes % (20.5 - 51.1 %) 6.3 L Monocytes % (1.7 - 9.3 %) 2.9 Eosinophils % (0 - 5 %) 0.2 Basophils % (0.0 - 2.0 %) 0 L Absolute Granulocytes (1.4 - 6.5 /CUMM) 14.2 H Absolute Lymphocytes (1.2 - 3.4 /CUMM) 1.0 L Absolute Monocytes (0.10 - 0.60 /CUMM) 0.5 Absolute Eosinophils (0.0 - 0.7 /CUMM) 0 Absolute Basophils (0.0 - 0.2 /CUMM) 0 PUBS MCHC (33.0 - 37.0 G/DL) 32.0 L Urines Urine Color (YEL,AMB,STR) YEL Urine Clarity (CLEAR) CLEAR Urine pH (5.0 - 8.0) 6.0 Ur Specific [place] (1.001 - 1.035) 1.025 Urine Protein (NEG,<30 MG/DL) 30 H Urine Ketones (NEG) 15 H Urine Nitrite (NEG) POS H Urine Bilirubin (NEG) NEG Urine Urobilinogen (0.1 - 1.0 EU/dl) 0.2 Ur Leukocyte Esterase (NEG) SMALL H Ur Microscopic SEDIMENT EXAMINED Urine RBC (0 - 5 /HPF) 1-3 Urine WBC (0 - 2 /HPF) 25-50 H Ur Epithelial Cells (NONE,FEW) FEW Urine Mucus (FEW,NONE) FEW Urine Hemoglobin (NEG) SMALL H Urine Glucose (N MG/DL) NEG Diagnostic Data EKG Results (12/06/2016) atrial fibrillation, PVCs, leftward axis, and LVH with repolarization abnormalities. Rhythm change when compared to previous tracing presses 12/05/2016). Other Results CT chest, abdomen, pelvis without contrast (12/05/2016) No acute abnormality CT scan chest, abdomen and pelvis. Assessment/Plan Assessment/Plan Elderly female who presented following a suspected syncopal episode following previous mechanical fall with right rib fracture 11/29/2016 with continued pain, decreased by mouth intake, upper respiratory symptoms etc., who is now complaining of urinary frequency, temperature maximum of 99.5, with laboratory work revealing an elevated WBC count with left shift and urine culture growing gram-negative rods, as well as, a transient episode of atrial fibrillation. Recommendations: * Continue on telemetry, follow-up troponins, follow-up electrocardiogram. * Continue IV hydration, antimicrobial therapy, and follow-up CXR in a.m. * Obtain echocardiogram to assess atrial size, degree of aortic stenosis, degree of left ventricular hypertrophy, left ventricular systolic/diastolic function, pulmonary pressure, etc. * Given the brief duration of atrial fibrillation, it is probably not necessary to maintain on anticoagulation. Naturally, if she has further paroxysms of atrial fibrillation full anticoagulation may well be indicated. * Continue prophylaxis for deep venous thrombosis. Further recommendations will follow, Thank you. Consult Acknowledgment - Thank you for your consult request.
[2016-12-06 16:00] VITALS: BP 142/66
[2016-12-06 23:55] VITALS: BP 140/70
--- NOTE | 2016-12-07 07:49 | PN- Housestaff ---
JUDI GARG,[facility] 12/07/16 0748: Subjective Follow-up For: Syncope Dehydration UTi Tele-Events Since Last Visit: Sinus Rythm 78-98 No overnight events Subjective: Ms Arizmendi was seen and examined this morning. She was seated on the chair beside the bed. She continues to complain of back pain. Pain is rated a 10 out of 10 in severity. Patient does state that the medication she is getting for the back pain does help. She is tolerating by mouth intake well. She continues to have a Muñoz which is draining well. She denies any fever, chills, nausea, vomiting. Review of Systems Constitutional: Reports: see HPI. Denies: chills, diaphoresis, weakness. Objective Last 24 Hrs of Vital Signs/I&O Vital Signs Date Time Temp Pulse Resp B/P Pulse O2 O2 Flow FiO2 Ox Delivery Rate 12/07 0901 91 160/80 12/07 0802 97.7 91 20 160/80 93 Room Air 12/07 0800 Room Air 12/07 0000 Nasal 2.0L Cannula 12/06 2355 97.9 100 20 140/70 92 Nasal 2.0L Cannula 12/06 1600 98.1 81 20 142/66 90 Room Air Intake & Output 12/07 1600 12/07 0800 12/07 0000 Intake Total 800 600 Output Total 550 1350 Balance 250 -750 Intake, IV 600 300 Intake, Oral 200 300 Output, Urine 550 1350 Physical Exam General Appearance: Alert, Oriented X3, Cooperative Cardiovascular: Normal S1, Normal S2 Lungs: Clear to Auscultation Abdomen: Normal Bowel Sounds, Soft, No Tenderness Neurological: Normal Speech Extremities: No Edema, Pain, tenderness with palpation, Right and left scapular areas. No focal deficits noted. Current Medications: Current Medications Sig/Perla Start time Last Medication Dose Route Stop Time Status Admin Acetaminophen 650 MG Q6P PRN 12/06 0130 AC PO Acetaminophen 1,000 MG Q6P PRN 12/06 0130 AC IV Amlodipine Besylate 10 MG DAILY 12/06 1000 AC 12/07 PO 0901 Calcium Carbonate 500 MG DAILY 12/06 1000 AC 12/07 PO 0901 Ceftriaxone Sodium 1,000 MG DAILY 12/06 1000 AC 12/07 IV 0901 Cholecalciferol 2,000 IU DAILY 12/06 1000 AC 12/07 PO 09 Docusate Sodium 100 MG BID 12/06 1000 AC 12/07 PO 0901 Fish Oil 1,050 MG DAILY 12/06 1000 AC 12/07 PO 0901 Heparin Sodium 5,000 UNIT Q8 12/06 2200 AC 12/07 (Porcine) SC 0524 Heparin Sodium 25,000 UNIT Q24H 12/06 0345 DC 12/06 (Porcine) IV 0411 Sodium Chloride 500 ML Lidocaine 1 PAT Q24H 12/06 0130 AC 12/07 EXT 0214 Morphine Sulfate 2 MG Q4P PRN 12/06 0315 AC 12/07 IV 0747 Multivitamins 1 TAB DAILY 12/06 1000 AC 12/07 PO 0901 Omeprazole 40 MG DAILY AC 12/06 0700 AC 12/07 PO 0523 Patient Medication 1 UNIT ONE NR 12/06 191 ME Teaching ED 12/06 2000 Polyethylene Glycol 17 GM AT BEDTIME 12/06 2200 AC 12/06 PO 191 Senna/Docusate Sodium 2 TAB AT BEDTIME 12/06 2200 AC 12/06 PO 1910 Sodium Chloride 1,000 ML Q13H 12/06 0200 AC 12/06 IV 1659 Last 24 Hrs of Lab/Julio Results Last 24 Hrs of Labs/Mics: Laboratory Tests 12/07/16 0650: Anion Gap 13, Estimated GFR > 60, BUN/Creatinine Ratio 18.0, CBC w Diff NO MAN DIFF REQ, RBC 4.16 L, MCV 72.1 L, MCH 23.5 L, RDW 16.5 H, MPV 7.8, Gran % 80.0 H, Lymphocytes % 14.0 L, Monocytes % 5.7, Eosinophils % 0.1, Basophils % 0.2, Absolute Granulocytes 6.8 H, Absolute Lymphocytes 1.2, Absolute Monocytes 0.5, Absolute Eosinophils 0, Absolute Basophils 0, PUBS MCHC 32.7 L 12/06/16 2200: APTT Cancelled Microbiology 12/06 1215 URINE ROUT: Urine Culture - RES Orders Radiology Findings: PATIENT: DON ROTHMAN PRESENT AGE: 80 PATIENT ACCOUNT NO: [id number] : 35 LOCATION: [facility] ORDERING PHYSICIAN: DAHLIA MENDIOLA MD SERVICE DATE: 12/07/16 EXAM TYPE: RAD - XRY-PORTABLE CHEST XRAY EXAMINATION: XR PORTABLE CHEST CLINICAL INFORMATION: Shortness of breath. COMPARISON: 11/29/2016 TECHNIQUE: Portable view of the chest was obtained. FINDINGS: Lungs remain hypoinflated and this patient with known right rib fractures. There are displaced right posterior 5th, 6th and 7th rib fractures. The fracture of the right posterior eighth rib is nondisplaced and the fracture of the right lateral ninth rib is minimally displaced. There are persistent linear opacities of atelectasis in the lingula, left lower lobe and right middle/lower lobes. Bibasilar atelectasis is slightly increased compared to 11/29/2016. No acute pulmonary consolidation, interstitial edema or pneumothorax. The trace right pleural effusion observed on the recent chest CT is difficult to visualize on this exam. Cardiomediastinal silhouette has stable size and contour. There is atherosclerotic calcification of the aorta. IMPRESSION: - Multiple recent right rib fractures. - Lungs remain hypoinflated with slightly increased bibasilar atelectasis compared to 11/29/2016. DICTATED BY: MIREILLE DODGE MD DATE/TIME DICTATED:12/07/161039 TOOL PLANNER:JENNY DATE/TIME TRANSCRIBED:12/07/161039 CONFIDENTIAL, DO NOT COPY WITHOUT APPROPRIATE AUTHORIZATION. <Electronically signed in Other Vendor System> SIGNED BY: MIREILLE DODGE MD 12/07/16 1050 Assessment/Plan Assessment: 80 y/o F with PMHx of HTN, GERD, osteoarthritis, osteoporosis s/p bilateral total knee and bilateral total shoulder arthroplasties and left hip fracture s/p IMHS who presents after fall. #Fall: Represents syncope/pre-syncope based on patient's symptoms. Differential includes cardiac arrhythmia, vasovagal syncope and orthostatic hypotension. CT Head/C-Spine/Chest/Abdomen/Pelvis with no acute fracture or abnormality. S/p bedside swallow eval. Initial troponin negative and EKG with no ST-T wave abnormalities. * Cardiology consulted. Appreciate their recs. * Transfer to telemetry for continuous cardiac monitoring to rule out arrhythmia. * ECHO ordered to evaluate for structural cardiac abnormalities. * Orthostatic vitals. * PT/OT consult. * Trend troponins and EKG. #UTI: Urinalysis significant for pyuria with WBC 25-50. Afebrile but with significant leukocytosis (WBC 15.7). S/p PO ciprofloxacin in the ED. * Follow UCx: Ecoli--> Continue Ceftriaxone --> began the patient on Augmentin 875 mg twice a day. * Start ceftriaxone 1 g IV QD. Discontinued #Rib fracture: Fracture of right ninth rib. * Lidocaine 5% patch. * Tylenol 650 mg PO Q6H PRN for mild pain (scale 1-3) * Tylenol 1 g IV Q6H PRN for moderate pain (scale 4-6) * Morphine 4 mg IV Q4H PRN for severe pain (scale 7-10) #HTN: BP elevated to 160/80 on admission. * Continue prior to admission amlodipine 10 mg PO QD. #Osteoporosis: S/p bilateral total knee and shoulder arthroplasties and left hip fracture s/p IMHS. * Continue prior to admission vitamin D3 2 g PO QD and calcium carbonate 500 mg PO QD. #Constipation: Secondary to opioids that patient was receiving for rib fracture. * Aggressive bowel regimen with Miralax, Senokot and Docusate. #GERD: * Continue prior to admission omeprazole 40 mg PO QD. Diet: Heart Healthy Fluids: NS @ 75 cc/hr DVT PPx: HSQ and ALPs CODE: FULL Problem List: 1. Dyspnea 2. Intertrochanteric fracture of left femur 3. Rib fracture 4. UTI (urinary tract infection) 5. Back pain 6. Fall 7. Intractable back pain 8. Gait instability 9. Right rib fracture 10. Constipation Pain Ratin Pain Location: Back Pain Goal: Remain pain free Pain Plan: Morphine 4mg Tomorrow's Labs & Rationales: BEP and magnesium monitor electrolytes in the setting of hypokalemia and hypomagnesemia. TED RODRIGUEZ MD 12/07/16 1253: Attending MD Review Statement Attending Statement Attending MD Statement: examined this patient, discuss w/resident/PA/PROGRAMMER OPERATOR NUMERICAL CONTROL, agreed w/resident/PA/PROGRAMMER OPERATOR NUMERICAL CONTROL, reviewed EMR data (avail) Attending Assessment/Plan: 80F PMH hypertension, gastroesophageal reflux disease and multiple joint replacements, osteoporosis with multiple falls and recent fall with rib fractures, CT showing T11 compression fracture, admitted with pre-syncope and multiple falls, found to have UTI. Patient improved today but still complaining of back pain. Urine cultures growing gram negative rods. Afebrile, stable vitals. Plan - Continue on telemetry - Follow cardiology recommendations - Obtain echocardiogram - Continue Ceftriaxone - Follow urine cultures, narrow when sensitivities return - WBC improving, continue to monitor - Gentle IV hydration - Check orthostatics - Continue home medications - Tylenol 650mg q6h standing - Morphine 4mg q4h PRN - Continue Senna, Colace for potential opioid-induced constipation - DVT PPx
[2016-12-07 08:02] VITALS: BP 160/80
[2016-12-07 08:55] LABS: ABSOLUTE BASOPHIL COUNT 0 /CUMM (0.0-0.2); ABSOLUTE EOSINOPHIL COUNT 0 /CUMM (0.0-0.7); ABSOLUTE GRANULOCYTE CT 6.8 /CUMM (1.4-6.5); ABSOLUTE LYMPH COUNT 1.2 /CUMM (1.2-3.4); ABSOLUTE MONOCYTE COUNT 0.5 /CUMM (0.10-0.60); BASOPHIL % 0.2 % (0.0-2.0); EOSINOPHIL % 0.1 % (0-5); MEAN CORPUSCULAR HGB 23.5 PG (27.0-31.0); MEAN CORPUSCULAR HGB CONC 32.7 G/DL (33.0-37.0); MEAN CORPUSCULAR VOLUME 72.1 FL (81.0-99.0); MEAN PLATELET VOLUME 7.8 FL (7.4-10.4); PLATELET COUNT 359 /CUMM (130-400); RBC DISTRIBUTION WIDTH 16.5 % (11.5-14.5); RED BLOOD CELL CT 4.16 /CUMM (4.20-5.40); WHITE BLOOD CELL COUNT 8.4 /CUMM (4.8-10.8)
--- NOTE | 2016-12-07 10:50 | RADIOLOGY REPORT ---
EXAMINATION: XR PORTABLE CHEST CLINICAL INFORMATION: Shortness of breath. COMPARISON: 11/29/2016 TECHNIQUE: Portable view of the chest was obtained. FINDINGS: Lungs remain hypoinflated and this patient with known right rib fractures. There are displaced right posterior 5th, 6th and 7th rib fractures. The fracture of the right posterior eighth rib is nondisplaced and the fracture of the right lateral ninth rib is minimally displaced. There are persistent linear opacities of atelectasis in the lingula, left lower lobe and right middle/lower lobes. Bibasilar atelectasis is slightly increased compared to 11/29/2016. No acute pulmonary consolidation, interstitial edema or pneumothorax. The trace right pleural effusion observed on the recent chest CT is difficult to visualize on this exam. Cardiomediastinal silhouette has stable size and contour. There is atherosclerotic calcification of the aorta. IMPRESSION: - Multiple recent right rib fractures. - Lungs remain hypoinflated with slightly increased bibasilar atelectasis compared to 11/29/2016.
[2016-12-07 16:00] VITALS: BP 128/70
[2016-12-07 23:59] VITALS: BP 150/60
[2016-12-08 08:05] VITALS: BP 152/64
--- NOTE | 2016-12-08 09:07 | PN- Housestaff ---
PERCY WAYNE 12/08/16 0907: Subjective Follow-up For: UTI Syncope Dehydration Tele-Events Since Last Visit: Sinus rhythm, rate 77-89, PACs Subjective: Patient seen and examined this morning. She reports having pain "all over her body". Denies headache, dizziness, lightheadedness, nausea, vomiting, shortness of breath, chest pain, abdominal pain, urinary symptoms. She has remained afebrile with stable vital signs. No events reported. Review of Systems Constitutional: Denies: see HPI. Objective Last 24 Hrs of Vital Signs/I&O Vital Signs Date Time Temp Pulse Resp B/P Pulse O2 O2 Flow FiO2 Ox Delivery Rate 12/08 1547 98.1 85 18 142/64 92 Room Air 12/08 1038 78 152/64 12/08 0805 98.3 78 20 152/64 91 Room Air 12/08 0800 Room Air 12/07 2359 98.1 73 20 150/60 91 Room Air Intake & Output 12/08 1600 12/08 0800 12/08 0000 Intake Total 3381 472 8297 Output Total 315 803 3020 Balance 610 100 315 Intake, IV 600 600 900 Intake, Oral 660 50 465 Number 1 Bowel Movements Output, Urine 378 844 8854 Physical Exam General Appearance: Alert, Oriented X3, Cooperative, No Acute Distress Skin: No Rashes, No Breakdown, No Significant Lesion, no ecchymosis noted HEENT: Atraumatic, PERRLA, EOMI, Mucous Membr. moist/pink Neck: Supple, No JVD, No thryomegaly, +2 Carotid Pulse wo Bruit, No LAD Lymphatic: Axillary nl, Cervical nl Cardiovascular: Regular Rate, Normal S1, Normal S2, No Murmurs, Gallops, Rubs Lungs: Clear to Auscultation, Normal Air Movement Abdomen: Normal Bowel Sounds, Soft, No Tenderness, No Hepatospenomegaly, No Masses Neurological: Normal Speech, Strength at 5/5 X4 Ext, Normal Tone, Sensation Intact, Cranial Nerves 3-12 NL, Reflexes 2+ Extremities: No Clubbing, No Cyanosis, No Edema, Normal Pulses, No Tenderness/ Swelling Vascular: Normal Pulses, Pulses Symmetrical Other Physical Findings: No severe tenderness, back exam grossly normal. Current Medications: Current Medications Sig/Perla Start time Last Medication Dose Route Stop Time Status Admin Acetaminophen 650 MG Q6P PRN 12/07 1330 AC PO Amlodipine Besylate 10 MG DAILY 12/06 1000 AC 12/08 PO 1038 Amoxicillin/ 875 MG Q12 12/07 2200 AC 12/08 Clavulanate Potassium PO 1038 Calcium Carbonate 500 MG DAILY 12/06 1000 AC 12/08 PO 1039 Ceftriaxone Sodium 1,000 MG DAILY 12/06 1000 DC 12/07 IV 0901 Cholecalciferol 2,000 IU DAILY 12/06 1000 AC 12/08 PO 1039 Docusate Sodium 100 MG BID 12/06 1000 AC 12/08 PO 1038 Fish Oil 1,050 MG DAILY 12/06 1000 AC 12/08 PO 1039 Heparin Sodium 5,000 UNIT Q8 12/06 2200 AC 12/08 (Porcine) SC 1311 Lidocaine 1 PAT DAILY 12/07 1622 CAN EXT Lidocaine 1 PAT Q24H 12/06 0130 AC 12/07 EXT 0214 Morphine Sulfate 15 MG Q6PRN PRN 12/08 1500 AC PO Morphine Sulfate 2 MG Q6-PRN PRN 12/08 1445 AC IV Morphine Sulfate 15 MG Q6PRN PRN 12/08 1030 DC 12/08 PO 1311 Morphine Sulfate 15 MG Q6 PRN 12/08 1015 DC PO Morphine Sulfate 4 MG Q4P PRN 12/07 1815 DC 12/08 IV 0800 Morphine Sulfate 2 MG Q4P PRN 12/06 0315 DC 12/07 IV 1747 Multivitamins 1 TAB DAILY 12/06 1000 AC 12/08 PO 1039 Omeprazole 40 MG DAILY AC 12/06 0700 AC 12/07 PO 0523 Polyethylene Glycol 17 GM AT BEDTIME 12/06 2199 AC 12/06 PO 1911 Senna/Docusate Sodium 2 TAB AT BEDTIME 12/06 2200 AC 12/06 PO 1910 Sodium Chloride 1,000 ML Q13H 12/06 0200 DC 12/08 IV 0612 Last 24 Hrs of Lab/Julio Results Last 24 Hrs of Labs/Mics: Laboratory Tests 12/08/16 0630: Anion Gap 6, Estimated GFR > 60, BUN/Creatinine Ratio 16.7, Magnesium 1.8 Assessment/Plan Assessment: 80 y/o F with PMHx of HTN, GERD, osteoarthritis, osteoporosis s/p bilateral total knee and bilateral total shoulder arthroplasties and left hip fracture s/p IMHS who presents after fall. #Fall: Represents syncope/pre-syncope based on patient's symptoms. Differential includes cardiac arrhythmia, vasovagal syncope and orthostatic hypotension. CT Head/C-Spine/Chest/Abdomen/Pelvis with no acute fracture or abnormality. S/p bedside swallow eval. * Cardiology consulted. Appreciate their recs. * Continue with chief technology officer * ECHO ordered to evaluate for structural cardiac abnormalities:Normal size left ventricle. Mild concentric left ventricular hypertrophy. No obvious regional wall motion abnormalities. Normal left ventricular ejection fraction visually estimated at > 60%. Abnormal relaxation filling pattern of the left ventricle for age (stage 1 diastolic dysfunction). Mild right ventricular dilatation. Normal right atrial size. Mild to moderate left atrial dilatation. Mobile mass observed on mitral valve. Cannot exclude partially flail mitral valve leaflet versus vegetation. Consider transesophageal echocardiogram if clinically indicated. Mild aortic stenosis. Mild aortic regurgitation. Mild tricuspid regurgitation. Mild pulmonary hypertension. Mild pulmonic regurgitation. Mildly dilated proximal ascending aorta (tube). Mildly dilated inferior vena cava. * PT/OT consult. * Trend troponins and EKG. * Will discontinue IV fluids as patient is eating and drinking well #UTI: Urinalysis significant for pyuria with WBC 25-50. Afebrile but with significant leukocytosis (WBC 15.7). S/p PO ciprofloxacin in the ED. * Follow UCx: Ecoli--> IV ceftriaxone was changed to by mouth Augmentin 875 mg twice a day on 12/07/2016 * Urine culture on 12/06/2016, no growth to date. #Rib fracture: Fracture of right ninth rib. * Lidocaine 5% patch. * Tylenol 650 mg PO Q6H PRN for mild pain (scale 1-3) * Will add MSIR 15 mg every 6 when necessary for moderate pain (scale 4-6) * Morphine 2 mg IV Q6H PRN for severe pain (scale 7-10) * Aggressive bowel regimen #HTN: BP elevated to 160/80 on admission. Now stable in 140 systolic, 60s diastolic. * Continue prior to admission amlodipine 10 mg PO QD. #Osteoporosis: S/p bilateral total knee and shoulder arthroplasties and left hip fracture s/p IMHS. * Continue prior to admission vitamin D3 2 g PO QD and calcium carbonate 500 mg PO QD. #Constipation: Secondary to opioids that patient was receiving for rib fracture. * Aggressive bowel regimen with Miralax, Senokot and Docusate. #GERD: * Continue prior to admission omeprazole 40 mg PO QD. Diet: Heart Healthy DVT PPx: HSQ and ALPs CODE: FULL Problem List: 1. Rib fracture 2. UTI (urinary tract infection) Pain Ratin Pain Location: All over; mostly ribs Pain Goal: Remain pain free Pain Plan: IV morphine, by mouth MSIR , by mouth Tylenol Tomorrow's Labs & Rationales: CBC to monitor H&H BEP to monitor electrolytes DOYLE QUINTERO MD 12/08/16 1347: Attending MD Review Statement Attending Statement Attending MD Statement: examined this patient, discuss w/resident/PA/DECAY CONTROL OPERATOR, agreed w/resident/PA/DECAY CONTROL OPERATOR, reviewed EMR data (avail), discussed with nursing, discussed with case mgmt Attending Assessment/Plan: 18-year-old female past medical history of hypertension, GERD who is here with suspected syncopal episode and fall. She has a T11 compression fracture and also had leukocytosis with a positive UA with treating Escherichia coli UTI. PT saw her and is recommending STR versus home PT. We are transitioning her from IV pain meds to by mouth pain meds. I'll stop the fluids, mobilize her and follow-up.
--- NOTE | 2016-12-08 12:28 | ECHOCARDIOGRAM REPORT ---
DON ROTHMAN Age: 80 : 1935 Gender: F Exam Date: 12/08/2016 09:26 Exam Location: [facility] Ht (in): 64 Wt (lb): 135 BSA: 1.67 BP: 150 / 60 Ordering Physician: KIRSTEN HER MD Referring Physician: KIRSTEN HER MD Technologist: Negro Venegas [facility] Room Number: [id number] Indications: ARRHYTHMIAS Rhythm: Sinus Technical Quality: Fair FINDINGS Left Ventricle Normal size left ventricle. Mild concentric left ventricular hypertrophy. No obvious regional wall motion abnormalities. Normal left ventricular ejection fraction visually estimated at >60%. Abnormal relaxation filling pattern of the left ventricle for age (stage 1 diastolic dysfunction). Right Ventricle Mild right ventricular dilatation. Right Atrium Normal right atrial size. Left Atrium Mild to moderate left atrial dilatation. Mitral Valve Moderate mitral annular calcification. Mobile mass observed on mitral valve. Cannot exclude partially flail mitral valve leaflet versus vegetation. Consider transesophageal echocardiogram if clinically indicated.mild mitral regurgitation. Aortic Valve Trileaflet aortic valve. Diffuse mild thickening of the aortic valve cusps with mildly reduced excursion. Mild aortic stenosis. Mild aortic regurgitation. Tricuspid Valve Structurally normal tricuspid valve. Mild tricuspid regurgitation. Mild pulmonary hypertension. Right ventricular systolic pressure estimated to be elevated at 40 mmHg. Pulmonic Valve Pulmonic valve not well visualized, grossly normal. Mild pulmonic regurgitation. Pericardium No pericardial effusion. Great Vessels Normal size aortic root. Mildly dilated proximal ascending aorta (tube). Mildly dilated inferior vena cava. CONCLUSIONS Normal size left ventricle. Mild concentric left ventricular hypertrophy. No obvious regional wall motion abnormalities. Normal left ventricular ejection fraction visually estimated at > 60%. Abnormal relaxation filling pattern of the left ventricle for age (stage 1 diastolic dysfunction). Mild right ventricular dilatation. Normal right atrial size. Mild to moderate left atrial dilatation. Mobile mass observed on mitral valve. Cannot exclude partially flail mitral valve leaflet versus vegetation. Consider transesophageal echocardiogram if clinically indicated. Mild aortic stenosis. Mild aortic regurgitation. Mild tricuspid regurgitation. Mild pulmonary hypertension. Mild pulmonic regurgitation. Mildly dilated proximal ascending aorta (tube). Mildly dilated inferior vena cava. Wesley House M.D. (Electronically Signed) Final Date: 08 December 2016 12:27 MEASUREMENTS (Male / Female) Normal Values 2D ECHO LV Diastolic Diameter PLAX 4.8 cm 4.2 - 5.9 / 3.9 - 5.3 cm LV Systolic Diameter PLAX 3.2 cm 2.1 - 4.0 cm LV Fractional Shortening PLAX 33.3 % 25 - 46 % LV Ejection Fraction 2D Teich 61.9 % IVS Diastolic Thickness 1.1 cm LVPW Diastolic Thickness 1.1 cm LVPW Systolic Thickness 0.6 cm LV Relative Wall Thickness 0.5 LVOT Diameter 1.8 cm Aortic Root Diameter 3.0 cm LV Ejection Fraction MOD BP 61.8 % >= 55 % LV Diastolic Length 4C 7.4 cm 6.9 - 10.3 cm LV Diastolic Area 4C 27.9 cm LV Diastolic Volume MOD 4C 84.0 cm LV Ejection Fraction MOD 4C 64.3 % LV Stroke Volume MOD 4C 54.0 cm LV Systolic Length 4C 6.1 cm LV Systolic Area 4C 14.7 cm LV Systolic Volume MOD 4C 30.0 cm LV Ejection Fraction MOD 2C 58.2 % LV Diastolic Volume 4C AL 89.1 cm 85 - 139 / 69 - 109 cm LV Systolic Volume 4C AL 30.1 cm LV Ejection Fraction 4C AL 66.2 % LV Stroke Volume 4C AL 59.0 cm LV Ejection Fraction 2C AL 59.7 % LA Volume 80.0 cm 18 - 58 / 22 - 52 cm Ascending Aorta Diameter 3.6 cm DOPPLER AV Peak Velocity 232.0 cm/s AV Peak Gradient 21.5 mmHg AV Mean Velocity 132.0 cm/s AV Mean Gradient 9.0 mmHg AV Velocity Time Integral 44.1 cm AI Deceleration Robeson 204.0 cm/s AI Peak Velocity 409.0 cm/s AI Pressure Half Time 586.0 ms AI Peak Gradient 66.9 mmHg LVOT Peak Velocity 131.0 cm/s LVOT Peak Gradient 6.9 mmHg LVOT Mean Velocity 77.6 cm/s LVOT Mean Gradient 3.0 mmHg LVOT Velocity Time Integral 26.8 cm LVOT Stroke Volume 68.2 cm AV Area Cont Eq vti 1.5 cm AV Area Cont Eq pk 1.4 cm MV Peak Velocity 142.0 cm/s MV Peak Gradient 8.1 mmHg MV Mean Velocity 88.5 cm/s MV Mean Gradient 4.0 mmHg Mitral E Point Velocity 76.5 cm/s Mitral A Point Velocity 133.0 cm/s Mitral E to A Ratio 0.6 MV PHT Velocity 105.0 cm/s MV Deceleration Robeson 475.0 cm/s MV Pressure Half Time 66.3 ms MV Area PHT 3.3 cm MV Deceleration Time 155.0 ms TR Peak Velocity 296.0 cm/s TR Peak Gradient 35.0 mmHg PV Peak Velocity 145.0 cm/s PV Peak Gradient 8.4 mmHg PV Mean Velocity 92.6 cm/s PV Mean Gradient 4.0 mmHg PV Velocity Time Integral 25.5 cm LV E' Lateral Velocity 5.9 cm/s Mitral E to LV E' Lateral Ratio 13.1 LV E' Septal Velocity 4.5 cm/s Mitral E to LV E' Septal Ratio 17.1
--- NOTE | 2016-12-08 12:56 | NUR ---
OCCUPARIONAL THERAPY NOTE: OT CONSULT RECEIVED AND CHART REVIEWED. PT TRANSFERRED TO TELE FROM MEDICINE UNIT. OT ON HOLD, PLEASE RE-CONSULT WHEN MEDICALLY APPROPRIATE.
[2016-12-08 15:47] VITALS: BP 142/64
--- NOTE | 2016-12-08 21:35 | Discharge Summary ---
Visit Information Visit Dates Admission Date: 12/06/16 Discharge Date: 12/11/16 Hospital Course Course Attending Physician: Dr. Yi Primary Care Physician: ANDERSON LITTLE MD Consulting Request: Consulting Specialty: Cardiology Hospital Course: This is an 80-year-old female with past medical history of hypertension, GERD, osteoarthritis, osteoporosis s/p bilateral total knee and bilateral total shoulder arthroplasties and left hip fracture s/p IMHS who presents after fall. she did complain of dizziness prior to the fall along with right-sided rib painworsened afterwards. the time of admission she also endorsed chills and increased frequency of urination. At the time of admission: Vitals: Afebrile, mild tachycardia, RR, BP, O2 saturation within normal range. On examination: A O 3, patient appears in pain. No acute distress, no focal neurological deficit, neck supple, no lymphadenopathy, mucosa dry. CVS: S1-S2, RRR. RS: Clear to auscultate. Abdomen: Soft, NT, ND, bowel sounds present, no dependent edema. Labs: CBC 15.7, hemoglobin 9.6, otherwise BMP and LFT unremarkable. EKG showed no acute changes. Imaging: CT head, CT cervical spine, CT chest, abdomen and pelvis: Shows no acute abnormality. She was admitted to the telemetry floor for presyncope/syncope. Problem list: 1) Presyncope/syncope: Patient was initially admitted to the general medicine floor but was transferred to the telemetry floor considering possible syncopal episode. Cardiology consult was placed. troponins 0.o4->0.09->0.01. She started complaining of central chest discomfort on day 4 along with dyspnea at rest, diaphoresis, anxiety. VSS upon evaluation. Exam was unremarkable, no EKG changes or elevation of enzymes noted. This was not thought to be chest discomfort of cardiac etiology, more likely due to a combination of severe anxiety and her preexisting rib pain. She has had no arrhythmias on the monitor other than a paroxysm of atrial fibrillation. Consideration to be given for anticoagulation if she had any further paroxysms of atrial fibrillation. 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 They do not feel she has a vegetation/endocarditis. Patient showed follow up with Wesley House MD (cardiology) after discharge. 2) Urinary tract infection: Urinalysis at the time of admission was positive for nitrites and leukocyte esterase.patient was started on ceftriaxone. urine culture grew Escherichia coli , which was pansensitive. she was switched over to Augmentin 875 mg twice a day to complete a course of 5 days. 3) Rib fracture: Chest x-ray showed displaced right posterior fifth, sixth, seventh rib fractures. Fracture of right posterior eighth rib (nondisplaced), minimally displaced right lateral ninth rib fracture. CT also showed T11 compression fracture. pain was managed with lidocaine 5% patch, Tylenol for mild and moderate pain and morphine 4 mg IV every 4 when necessary for severe pain. she is to be discharged on MS IR 30 mg by mouth every 4 when necessary for moderate- to-severe pain. 4) Hypertension: Patient was continued on home amlodipine 10 mg by mouth daily 5) Osteoporosis: Status post bilateral total knee and shoulder arthroplasties. Continued on home vitamin D3 and calcium carbonate. 6) Constipation: Thought to be secondary to opioids that the patient was receiving for a fracture. Aggressive bowel regimen with MiraLAX, Senokot, Percocet was started. 7) GERD: Patient continued on home omeprazole 40 g by mouth daily 8) DVT prophylaxis: Subcutaneous heparin 9) CODE STATUS: Full code Allergies: Coded Allergies: NO KNOWN ALLERGIES (06/12/16) Significant Procedures: Echocardiogram 12/08/16: CONCLUSIONS Normal size left ventricle. Mild concentric left ventricular hypertrophy. No obvious regional wall motion abnormalities. Normal left ventricular ejection fraction visually estimated at > 60%. Abnormal relaxation filling pattern of the left ventricle for age (stage 1 diastolic dysfunction). Mild right ventricular dilatation. Normal right atrial size. Mild to moderate left atrial dilatation. Mobile mass observed on mitral valve. Cannot exclude partially flail mitral valve leaflet versus vegetation. Consider transesophageal echocardiogram if clinically indicated. Mild aortic stenosis. Mild aortic regurgitation. Mild tricuspid regurgitation. Mild pulmonary hypertension. Mild pulmonic regurgitation. Mildly dilated proximal ascending aorta (tube). Mildly dilated inferior vena cava. Wesley House M.D. (Electronically Signed) Final Date: 08 December 2016 Pertinent Lab Results: Vital signs on admission: Date Time Temp Pulse Resp B/P Pulse O2 O2 Flow FiO2 Ox Delivery Rate 12/06 0205 97.6 110 20 114/66 91 Room Air 12/06 0106 97.6 100 18 165/77 93 Room Air 12/054 99.5 98 20 184/81 92 Room Air Pertinent physical exam at the time of admission: General Appearance Alert, Oriented X3, Mild Distress HEENT Dry Mucous Membranes Neck Supple Cardiovascular Normal S1, Normal S2, Tachycardic Lungs Clear to Auscultation Abdomen Soft, No Tenderness, Positive Bowel Sounds Neurological No Gross Focal Deficits Noted Extremities No Clubbing, No Cyanosis, No Edema Pertinent Lab data: 12/05/162319: Urine Color YEL, Urine Clarity CLEAR, Urine pH 6.0, Ur Specific Douglas 1.025, Urine Protein 30 H, Urine Ketones 15 H, Urine Nitrite POS H, Urine Bilirubin NEG, Urine Urobilinogen 0.2, Ur Leukocyte Esterase SMALL H, Ur Microscopic SEDIMENT EXAMINED, Urine RBC 1-3, Urine WBC 25-50 H, Ur Epithelial Cells FEW, Urine Mucus FEW, Urine Hemoglobin SMALL H, Urine Glucose NEG 12/05/16 2149: Anion Gap 13, Estimated GFR > 60, BUN/Creatinine Ratio 26.7 H, Glucose 138 H, Calcium 9.2, Total Bilirubin 0.6, Direct Bilirubin 0.3, AST 25, ALT 31, Alkaline Phosphatase 74, Troponin I 0.04, Total Protein 7.5, Albumin 4.1, Amylase 31, Lipase 81, CBC w Diff NO MAN DIFF REQ, RBC 4.16 L, MCV 71.9 L, MCH 23.0 L, RDW 16.5 H, MPV 7.6, Gran % 90.6 H, Lymphocytes % 6.3 L, Monocytes % 2.9, Eosinophils % 0.2, Basophils % 0 L, Absolute Granulocytes 14.2 H, Absolute Lymphocytes 1.0 L, Absolute Monocytes 0.5, Absolute Eosinophils 0, Absolute Basophils 0, PUBS MCHC 32.0 L Microbiology 12/05 2319 URINE ROUT: Urine Culture - RECD Diagnostic Data EKG Results NSR HR 83 Probable left atrial abnormality Left axis deviation LVH with secondary repolarization abnormality QTc [address] HEAD AND CERVICAL SPINE W/O CONTRAST: 1. There are no acute bleeds or territorial infarcts. 2. There are sequelae of diffuse volume loss and severe chronic microvascular ischemic disease. 3. There is a scalp contusion in the right parietal region. No calvarial fractures are demonstrated. 4. There are no fractures or subluxations in the cervical spine. 5. There are multilevel spondylitic changes. CT CHEST/ABDOMEN/PELVIS W/O IV CONTRAST: No acute abnormality CT scan chest, abdomen and pelvis. Disposition Summary Disposition Principal Diagnosis: Presyncope/syncope Multiple rib fractures Additional Diagnosis: UTI Hypertension Osteoporosis GERD Discharge Disposition: SNF Discharge Instructions General Discharge Information Code Status: Full Code Patient's Diet: Cardiac Patient's Activity: As tolerated, PT/OT Follow-Up Instructions/Appts: Follow up with PCP, Social Group Worker Medications at Discharge Discharge Medications: Stop taking the following medications: Oxycodone HCl/Acetaminophen (Percocet 5-325 MG Tablet) 5 MG-325 MG TABLET ORAL TWICE DAILY as needed for PAIN Qty = 10 Continue taking these medications: Omeprazole (Omeprazole) 40 MG CAPSULE.DR 1 Capsule ORAL DAILY Comments: Last Taken: 09/25/15 Time: 0600 Multivitamin, Minerals, and (Centrum Silver) 1 TAB TAB 1 Tablet ORAL DAILY Comments: NOT GIVEN IN HOSPITAL Amlodipine Besylate (Amlodipine) 10 MG TABLET 1 Tablet ORAL DAILY Comments: Last Taken: 09/25/15 Time: 0830 Promethazine HCl (Promethazine HCl) 6.25 MG/5 ML SYRUP 5 Milliliters ORAL THREE TIMES DAILY Qty = 118 Comments: NOT GIVEN IN HOSPITAL Calcium Carbonate (Calcium) 500 MG CALCIUM (1,250 MG) TABLET 1 Tablet ORAL DAILY Comments: Last Taken: 12/11/16 Time: 9AM Fish Oil/Dha/Epa (Fish Oil 1,200 MG Fish Oil) 1,200 MG-144 MG-216 MG CAPSULE 1 Capsule ORAL DAILY Comments: Last Taken: 12/11/16 Time: 10AM Cholecalciferol (Vitamin D3) (Vitamin D) 2,000 UNIT TABLET 1 Tablet ORAL DAILY Comments: Last Taken: 12/11/16 Time: 10AM Magnesium (Magnesium) 250 MG TABLET 1 Tablet ORAL DAILY Comments: NOT GIVEN IN HOSPITAL Start taking the following new medications: Morphine Sulfate (Morphine Sulfate) 15 MG TABLET 30 Milligram ORAL EVERY 4 HOURS NEEDED as needed for mod/severe pain Days = 30 No Refills Comments: Last Taken: 12/10/16 Time: 9PM Polyethylene Glycol 3350 (Miralax) 17 GRAM/DOSE POWDER 17 Gram ORAL AT BEDTIME Days = 30 No Refills Comments: Last Taken: 12/10/16 Time: 10PM Sennosides/Docusate Sodium (Senna Plus Tablet) 8.6 MG-50 MG TABLET 2 Tablet ORAL AT BEDTIME Days = 30 No Refills Comments: Last Taken: 12/10/16 Time: 10PM Copies To: ANABEL GARG,ANDERSON Attending MD Review Statement Documenting Attending: INGRID GARG,DOYLE Marie
[2016-12-08 22:00] VITALS: BP 140/80
--- NOTE | 2016-12-09 07:38 | PN- Housestaff ---
See Addendum Subjective Follow-up For: UTI Syncope Dehydration Tele-Events Since Last Visit: Sinus rhythm, first-degree heart block, rate 62-64, VT interval 0.24, 4 beats 10 PM Subjective: Patient seen and examined. She still reports having pain especially in her back however improved compared to yesterday. Also reports having constipation. Denies headache, nausea, vomiting, dizziness, lightheadedness, shortness of breath, chest pain, abdominal pain, urinary symptoms. She has remained afebrile with stable vital signs. Review of Systems Constitutional: Denies: see HPI. Objective Last 24 Hrs of Vital Signs/I&O Vital Signs Date Time Temp Pulse Resp B/P Pulse O2 O2 Flow FiO2 Ox Delivery Rate 12/08 2200 97.9 79 20 140/80 93 Room Air 12/08 1547 98.1 85 18 142/64 92 Room Air 12/08 1038 78 152/64 12/08 0805 98.3 78 20 152/64 91 Room Air 12/08 0800 Room Air Intake & Output 12/09 0800 12/09 0000 12/08 1600 Intake Total 100 637.5 1260 Output Total 1300 450 650 Balance -1200 187.5 610 Intake, IV 112.5 600 Intake, Oral 100 525 660 Output, Urine 1300 450 650 Physical Exam General Appearance: Alert, Oriented X3, Cooperative, No Acute Distress Skin: No Rashes, No Breakdown, No Significant Lesion HEENT: Atraumatic, PERRLA, EOMI, Mucous Membr. moist/pink Neck: Supple, No JVD, No thryomegaly, +2 Carotid Pulse wo Bruit, No LAD Lymphatic: Axillary nl, Cervical nl Cardiovascular: Regular Rate, Normal S1, Normal S2, No Murmurs Lungs: Clear to Auscultation, Normal Air Movement Abdomen: Normal Bowel Sounds, Soft, No Tenderness, No Hepatospenomegaly, No Masses Neurological: Normal Speech, Normal Tone, Sensation Intact, Cranial Nerves 3-12 NL, Reflexes 2+ Extremities: No Clubbing, No Cyanosis, No Edema, Normal Pulses, No Tenderness/ Swelling Vascular: Normal Pulses, Pulses Symmetrical Current Medications: Current Medications Sig/Perla Start time Last Medication Dose Route Stop Time Status Admin Acetaminophen 650 MG Q6P PRN 12/07 1330 AC PO Amlodipine Besylate 10 MG DAILY 12/06 1000 AC 12/08 PO 1038 Amoxicillin/ 875 MG Q12 12/07 2200 AC 12/08 Clavulanate Potassium PO 2048 Calcium Carbonate 500 MG DAILY 12/06 1000 AC 12/08 PO 1039 Cholecalciferol 2,000 IU DAILY 12/06 1000 AC 12/08 PO 1039 Docusate Sodium 100 MG BID 12/06 1000 AC 12/08 PO 2048 Fish Oil 1,050 MG DAILY 12/06 1000 AC 12/08 PO 1039 Heparin Sodium 5,000 UNIT Q8 12/06 2200 AC 12/09 (Porcine) SC 0606 Lidocaine 1 PAT Q24H 12/06 0130 AC 12/07 EXT 0214 Morphine Sulfate 2 MG Q4 HRS NEEDED PRN 12/09 0745 AC IV Morphine Sulfate 15 MG Q6PRN PRN 12/08 1500 AC PO Morphine Sulfate 2 MG Q6-PRN PRN 12/08 1445 DC 12/09 IV 0154 Morphine Sulfate 15 MG Q6PRN PRN 12/08 1030 DC 12/08 PO 1311 Morphine Sulfate 15 MG Q6 PRN 12/08 1015 DC PO Morphine Sulfate 4 MG Q4P PRN 12/07 1815 DC 12/08 IV 0800 Multivitamins 1 TAB DAILY 12/06 1000 AC 12/08 PO 1039 Omeprazole 40 MG DAILY AC 12/06 0700 AC 12/09 PO 0606 Polyethylene Glycol 17 GM AT BEDTIME 12/06 2199 AC 12/08 PO 2048 Senna/Docusate Sodium 2 TAB AT BEDTIME 12/06 220 AC 12/08 PO 2050 Sodium Chloride 1,000 ML Q13H 12/06 0200 DC 12/08 IV 0612 Last 24 Hrs of Lab/Julio Results Last 24 Hrs of Labs/Mics: Laboratory Tests 12/09/16 0625: Anion Gap 10, Estimated GFR > 60, BUN/Creatinine Ratio 18.3, CBC w Diff Pending, WBC Pending, RBC Pending, Hgb Pending, Hct Pending, MCV Pending, MCH Pending, RDW Pending, Plt Count Pending, MPV Pending, PUBS MCHC Pending Assessment/Plan Assessment: 80 y/o F with PMHx of HTN, GERD, osteoarthritis, osteoporosis s/p bilateral total knee and bilateral total shoulder arthroplasties and left hip fracture s/p IMHS who presents after fall. #Fall: Represents syncope/pre-syncope based on patient's symptoms. Differential includes cardiac arrhythmia, vasovagal syncope and orthostatic hypotension. CT Head/C-Spine/Chest/Abdomen/Pelvis with no acute fracture or abnormality. S/p bedside swallow eval. * Cardiology consulted. Appreciate their recs. * Continue with mobile application development lead * ECHO ordered to evaluate for structural cardiac abnormalities:Normal size left ventricle. Mild concentric left ventricular hypertrophy. No obvious regional wall motion abnormalities. Normal left ventricular ejection fraction visually estimated at > 60%. Abnormal relaxation filling pattern of the left ventricle for age (stage 1 diastolic dysfunction). Mild right ventricular dilatation. Normal right atrial size. Mild to moderate left atrial dilatation. Mobile mass observed on mitral valve. Cannot exclude partially flail mitral valve leaflet versus vegetation. Consider transesophageal echocardiogram if clinically indicated. Mild aortic stenosis. Mild aortic regurgitation. Mild tricuspid regurgitation. Mild pulmonary hypertension. Mild pulmonic regurgitation. Mildly dilated proximal ascending aorta (tube). Mildly dilated inferior vena cava. * PT/OT consult. * Trend troponins and EKG. * Pain management: By mouth Tylenol, by mouth MSIR for moderate pain, IV morphine for severe pain #UTI: Urinalysis significant for pyuria with WBC 25-50. Afebrile but with significant leukocytosis (WBC 15.7). S/p PO ciprofloxacin in the ED. * Follow UCx: Ecoli--> IV ceftriaxone was changed to by mouth Augmentin 875 mg twice a day on 12/07/2016 * Urine culture on 12/06/2016, no growth to date. #Rib fracture: Fracture of right ninth rib. * Lidocaine 5% patch. * Tylenol 650 mg PO Q6H PRN for mild pain (scale 1-3) * Will add MSIR 15 mg every 6 when necessary for moderate pain (scale 4-6) * Morphine 2 mg IV Q6H PRN for severe pain (scale 7-10) * Aggressive bowel regimen #HTN: BP elevated to 160/80 on admission. Now stable in 140 systolic, 80s diastolic. * Continue prior to admission amlodipine 10 mg PO QD. #Osteoporosis: S/p bilateral total knee and shoulder arthroplasties and left hip fracture s/p IMHS. * Continue prior to admission vitamin D3 2 g PO QD and calcium carbonate 500 mg PO QD. #Constipation: Secondary to opioids that patient was receiving for rib fracture. * Aggressive bowel regimen with Miralax, Senokot and Docusate. #GERD: * Continue prior to admission omeprazole 40 mg PO QD. Diet: Heart Healthy DVT PPx: HSQ and ALPs CODE: FULL Problem List: 1. Constipation 2. Right rib fracture Pain Ratin Pain Location: ribs, back Pain Goal: Remain pain free Pain Plan: IV morphine, by mouth MSIR , by mouth Tylenol Tomorrow's Labs & Rationales: TBD
[2016-12-09 07:57] LABS: ABSOLUTE BASOPHIL COUNT 0 /CUMM (0.0-0.2); ABSOLUTE EOSINOPHIL COUNT 0.1 /CUMM (0.0-0.7); ABSOLUTE GRANULOCYTE CT 3.9 /CUMM (1.4-6.5); ABSOLUTE LYMPH COUNT 1.8 /CUMM (1.2-3.4); ABSOLUTE MONOCYTE COUNT 0.6 /CUMM (0.10-0.60); BASOPHIL % 0.5 % (0.0-2.0); EOSINOPHIL % 1.9 % (0-5); GRANULOCYTE % 60.8 % (42.2-75.2); HEMATOCRIT 30.5 % (37-47); MEAN CORPUSCULAR HGB 23.5 PG (27.0-31.0); MEAN CORPUSCULAR HGB CONC 32.7 G/DL (33.0-37.0); MEAN CORPUSCULAR VOLUME 71.9 FL (81.0-99.0); MEAN PLATELET VOLUME 7.8 FL (7.4-10.4); PLATELET COUNT 371 /CUMM (130-400); RBC DISTRIBUTION WIDTH 16.8 % (11.5-14.5); RED BLOOD CELL CT 4.24 /CUMM (4.20-5.40); WHITE BLOOD CELL COUNT 6.4 /CUMM (4.8-10.8)
[2016-12-09 08:00] VITALS: BP 130/68
[2016-12-09 16:15] VITALS: BP 130/70
[2016-12-09 23:34] VITALS: BP 140/72
--- NOTE | 2016-12-10 07:52 | PN- Housestaff ---
SINA GARG,MARIAH 12/10/16 0751: Subjective Follow-up For: - Fall - Rib frx - Pain mgmt - CP today Tele-Events Since Last Visit: nsr Subjective: Awake, alert, oriented x3, sitting in bed eating breakfast. Began complaining of CP early this am, central, nonradiating, not related to exertion, she is somewhat diaphoretic, appears anxious, clamouring for pain medications. Review of Systems Constitutional: Denies: see HPI. Objective Last 24 Hrs of Vital Signs/I&O Vital Signs Date Time Temp Pulse Resp B/P Pulse O2 O2 Flow FiO2 Ox Delivery Rate 12/09 2334 98.0 78 18 140/72 97 Room Air 12/09 1615 97.8 82 16 130/70 94 Room Air 12/09 0941 84 130/68 Intake & Output 12/10 1600 12/10 0800 12/10 0000 Intake Total 40 600 Output Total 200 100 Balance -160 500 Intake, IV 10 Intake, Oral 30 600 Number 1 Bowel Movements Output, Urine 200 100 Physical Exam General Appearance: Alert, Oriented X3, Cooperative Other Physical Findings: Skin: No Rashes, No Breakdown, No Significant Lesion HEENT: Atraumatic, PERRLA, EOMI, Mucous Membr. moist/pink Neck: Supple, No JVD, No thryomegaly, +2 Carotid Pulse wo Bruit, No LAD Lymphatic: Axillary nl, Cervical nl Cardiovascular: Regular Rate, Normal S1, Normal S2, No Murmurs Lungs: Clear to Auscultation, Normal Air Movement Abdomen: Normal Bowel Sounds, Soft, No Tenderness, No Hepatospenomegaly, No Masses Neurological: Normal Speech, Normal Tone, Sensation Intact, Cranial Nerves 3-12 NL, Reflexes 2+ Extremities: No Clubbing, No Cyanosis, No Edema, Normal Pulses, No Tenderness/ Swelling Vascular: Normal Pulses, Pulses Symmetrical Current Medications: Current Medications Sig/Perla Start time Last Medication Dose Route Stop Time Status Admin Acetaminophen 650 MG Q6P PRN 12/07 1330 AC PO Amlodipine Besylate 10 MG DAILY 12/06 1000 AC 12/09 PO 0941 Amoxicillin/ 875 MG Q12 12/07 2200 DC 12/09 Clavulanate Potassium PO 2023 Aspirin 325 MG ONCE ONE 12/10 0845 DC 12/10 PO 12/10 0846 0856 Calcium Carbonate 500 MG DAILY 12/06 1000 AC 12/09 PO 0941 Cholecalciferol 2,000 IU DAILY 12/06 1000 AC 12/09 PO 0941 Docusate Sodium 100 MG BID 12/06 1000 AC 12/09 PO 202 Fish Oil 1,050 MG DAILY 12/06 1000 AC 12/09 PO 0941 Heparin Sodium 5,000 UNIT Q8 12/06 2200 AC 12/10 (Porcine) SC 0553 Lidocaine 1 PAT Q24 12/10 1000 AC EXT Lidocaine 1 PAT Q24H 12/06 0130 DC 12/09 EXT 0130 Morphine Sulfate 1 MG ONCE ONE 12/10 0900 DC 12/10 IV 12/10 0901 0856 Morphine Sulfate 30 MG Q4P PRN 12/09 0900 AC 12/09 PO 202 Multivitamins 1 TAB DAILY 12/06 1000 AC 12/09 PO 0941 Nitroglycerin 0.4 MG ONCE ONE 12/10 0845 DC 12/10 SL 12/10 0846 0856 Omeprazole 40 MG DAILY AC 12/06 0700 AC 12/10 PO 0553 Patient Medication 1 UNIT ONE NR 12/09 0900 SD Teaching ED 12/09 1500 Polyethylene Glycol 17 GM AT BEDTIME 12/06 2200 AC 12/08 PO 2048 Senna/Docusate Sodium 2 TAB AT BEDTIME 12/06 2200 AC 12/08 PO 2050 Last 24 Hrs of Lab/Julio Results Last 24 Hrs of Labs/Mics: Microbiology 12/09 1735 URINE ROUT: Urine Culture - RECD Assessment/Plan Assessment: Kyleigh is a 80-year-old woman with a medical history of Stage 1 diasyolic dysfunction, hypertension GERD osteoarthritis osteoporosis status post bilateral total knee and bilateral shoulder arthroplasties, left hip fracture status post IM at bedtime admitted after fall/syncopal episode. Brief paroxysm of atrial fibrillation. She has ribs frx, and a T11 compression fracture. No events overnight, her only issue seems to be pain control. She is on MSIR 30 mg every 4 hours when necessary, and Augmentin for UTI. Today is Day # 5 of abx. She is growing sensitive E.coli in urine. *Began complaining of central chest discomfort, dyspnea at rest, diaphoretic, anxious while eating breakfast this morning. VSS upon evaluation. S1/S2, Lungs Clear. - Problems - Acute chest pain syndrome Fall Mechanicall Fall Multiple frx Ribs T11 Compression frx Paroxysmal atrial fibrillation UTI HTN - Plan - Cont PT/OT Serial Enzymes, EKG Aspiring 325 x 1 NTG x 1 sl Await further recs from cardiology ?DC tele pending above Continue MSIR for pain control Continue aggressive bowel regimen Consider Methylnaltrexone x 1 if no BM Consider orthopedic evaluation DC abx, completed course Continue amlodipine DVT ppx w/ heparin Dispo: Plan to DC to STR Full code Problem List: 1. Right rib fracture Pain Ratin Pain Location: back ribs Pain Goal: Pain 7 or less Pain Plan: see above Tomorrow's Labs & Rationales: see above Consulting Request: Consulting Specialty: Cardiology INGRID GARG,DOYLE 12/10/16 1018: Attending MD Review Statement Attending Statement Attending MD Statement: examined this patient, discuss w/resident/PA/OPERATIONS SYSTEMS SPECIALIST, agreed w/resident/PA/OPERATIONS SYSTEMS SPECIALIST, reviewed EMR data (avail), discussed with nursing, discussed with case mgmt Attending Assessment/Plan: Events noted. Patient had an episode of chest pain earlier today. I believe that this is all secondary to her rib fractures, atelectasis and anxiety about going home. She is an 80-year-old female who has a history of GERD osteoporosis and hyperlipidemia. She's had 2 falls now within the past 2 weeks. Her compression fracture in the vertebral area is an osteoporotic chronic compression fracture but she has fractured multiple ribs with the fall. I do think her needs will be better served in rehabilitation given her pain and splinting and high chance of developing pneumonia. I explained to her this as such. I spoke to Dr. House I have no suspicion for infective endocarditis he did see this questionable mobile mass on the mitral valve and he thinks it's probably a flail mitral leaflet and given the lack of suspicion for infective endocarditis will not pursue a GENESIS. She did come in with a dirty UA and positive urine culture with some symptoms she's finished 5 days of antibiotics and will stop it at this point.
--- NOTE | 2016-12-10 09:19 | NUR ---
PATIENT CALLED FOR HELP @ 0815 AND STATED THAT SHE WAS HAVING ACHING CHEST PAIN RADIATING TO HER BACK. SHE ALSO WAS SOB AND SLIGHTLY DIAPHORETIC AND FLUSHED. I PUT HER BACK TO BED AND PLACE HER ON 2LO2NC. REPORTED TO DR. MARIAH ANDINO. EKG WAS DONE. 1 SUBLINGUAL NITRO, 1MG MORPHINE IV, AND 325MG ASA WAS ORDERED AND GIVEN. BP WAS 130/62, HR 82, AND O2 SAT 100% ON O2. PATIENT REPORTED HER PAIN LEVEL DECREASING FROM A 6 TO A 4 ON A PAIN SCALE OF 1-10. TROPONIN TO BE CHECKED.
--- NOTE | 2016-12-10 09:21 | NUR ---
PHYSICAL THERAPY. Pt WITH CHEST PAIN THIS AM, WORK-UP PENDING. PT WILL F/U APPROPRIATE.
[2016-12-10 09:40] VITALS: BP 120/80
[2016-12-10] MEDS ORDERED: MORPHINE SULFAT15 M4 PO (15:46)
--- NOTE | 2016-12-10 15:49 | Patient Discharge Instructions ---
Discharge Instructions General Discharge Information You were seen/treated for: - SYNCOPE - FALL - RIB FRACTURES - URINARY INFECTION Special Instructions: Patient needs aggressive incentive spirometry considering recent rib fracture. Aggressive bowel regimen as the patient is on opiods. Diet Continue normal diet: Yes Activity Activity Self Limited: Yes Acute Coronary Syndrome Inclusion Criteria At DC or during hospital stay patient has or had the following: ACS DIAGNOSIS No Discharge Core Measures Meds if any: Prescribed or Continued at Discharge Meds if any: NOT Prescribed or Continued at Discharge Congestive Heart Failure Inclusion Criteria At DC or during hospital stay patient has or had the following: CHF DIAGNOSIS No Discharge Core Measures Meds if any: Prescribed or Continued at Discharge Meds if any: NOT Prescribed or Continued at Discharge Cerebrovascular accident Inclusion Criteria At DC or during hospital stay patient has or had the following: CVA/TIA Diagnosis No Discharge Core Measures Meds if any: Prescribed or Continued at Discharge Meds if any: NOT Prescribed or Continued at Discharge Venous thromboembolism Inclusion Criteria VTE Diagnosis No VTE Type NONE VTE Confirmed by (Test) NONE Discharge Core Measures - Per Current guidelines, there needs to be overlap - treatment for the first 5 days of Warfarin therapy. - If discharged on Warfarin prior to 5 days of - overlap therapy, the patient will need to be - assessed for post discharge needs including - *Post discharge parental anticoagulation - *Warfarin and/or parental anticoagulation education - *Follow up date to check INR post discharge At least 5 days overlap therapy as Inpatient No Meds if any: Prescribed or Continued at Discharge Note: Overlap Therapy is Warfarin and Anticoagulant Meds if any: NOT Prescribed or Continued at Discharge
[2016-12-10 16:04] VITALS: BP 150/62
[2016-12-10 23:58] VITALS: BP 138/64
--- NOTE | 2016-12-11 08:29 | PN- Housestaff ---
LAYNE GARG,ADOLFO 12/11/16 0826: Subjective Follow-up For: Presyncope/Syncope UTI Rib fractures Complaints: no complaints Subjective: Patient is sitting comfortably in bed. She states that her rib pain is well controlled and is better since she came in. She does have a dry mouth and is requesting something for it. Review of Systems Constitutional: Reports: see HPI. Objective Last 24 Hrs of Vital Signs/I&O Vital Signs Date Time Temp Pulse Resp B/P Pulse O2 O2 Flow FiO2 Ox Delivery Rate 12/10 2358 98.2 76 18 138/64 94 Room Air 12/10 1604 98.3 73 18 150/62 93 12/10 1416 Room Air 2.0L 12/10 0940 98.6 61 20 120/80 92 Room Air 12/10 0937 82 130/62 Intake & Output 12/11 1600 12/11 0800 12/11 0000 Intake Total 240 300 Output Total 350 250 Balance -110 50 Intake, IV 10 Intake, Oral 240 290 Output, Urine 350 250 Physical Exam General Appearance: Alert, Oriented X3, Cooperative, No Acute Distress Cardiovascular: Regular Rate, Normal S1, Normal S2, No Murmurs Lungs: Clear to Auscultation, Normal Air Movement Abdomen: Normal Bowel Sounds, Soft, No Tenderness Neurological: Normal Speech, Normal Tone, Sensation Intact Extremities: No Edema Current Medications: Current Medications Sig/Perla Start time Last Medication Dose Route Stop Time Status Admin Acetaminophen 650 MG Q6P PRN 12/07 1330 AC PO Amlodipine Besylate 10 MG DAILY 12/06 1000 AC 12/10 PO 0937 Amoxicillin/ 875 MG Q12 12/07 2199 DC 12/09 Clavulanate Potassium PO 2023 Aspirin 325 MG ONCE ONE 12/10 0845 DC 12/10 PO 12/10 0846 0856 Calcium Carbonate 500 MG DAILY 12/06 1000 AC 12/10 PO 0937 Cholecalciferol 2,000 IU DAILY 12/06 1000 AC 12/10 PO 0936 Clotrimazole 1 MARVIN AT BEDTIME PRN 12/10 1715 AC 12/10 VAG 4 Docusate Sodium 100 MG BID 12/06 1000 AC 12/10 PO 205 Fish Oil 1,050 MG DAILY 12/06 1000 AC 12/10 PO 0936 Heparin Sodium 5,000 UNIT Q8 12/06 2200 AC 01/19 (Porcine) SC 0630 Lidocaine 1 PAT Q24 12/10 1000 AC EXT Morphine Sulfate 1 MG ONCE ONE 12/10 0900 DC 12/10 IV 12/10 0901 0856 Morphine Sulfate 30 MG Q4P PRN 12/09 0900 AC 12/10 PO 2119 Multivitamins 1 TAB DAILY 12/06 1000 AC 12/10 PO 0937 Nitroglycerin 0.4 MG ONCE ONE 12/10 0845 DC 12/10 SL 12/10 0846 0856 Omeprazole 40 MG DAILY AC 12/06 0700 AC 12/11 PO 0630 Oxycodone/ 1 TAB ONCE ONE 12/10 2114 DC Acetaminophen PO 12/10 2115 Polyethylene Glycol 17 GM AT BEDTIME 12/06 2199 AC 12/08 PO 2047 Senna/Docusate Sodium 2 TAB AT BEDTIME 12/06 2199 AC 12/08 PO 2049 Last 24 Hrs of Lab/Julio Results Last 24 Hrs of Labs/Mics: Laboratory Tests 12/10/16 0939: Troponin I < 0.01 Lines/Diet/Fluids Lines: peripheral lines Assessment/Plan Assessment: This is an 80-year-old female with a past medical history of hypertension, GERD, osteoarthritis, osteoporosis s/p bilateral total knee and bilateral total shoulder arthroplasties and left hip fracture s/p IM who presents after fall. she did complain of dizziness prior to the fall along with right-sided rib painworsened afterwards. the time of admission she also endorsed chills and increased frequency of urination.Problem list: 1) Presyncope/syncope: Patient was initially admitted to the general medicine floor but was transferred to the telemetry floor considering possible syncopal episode. Cardiology consult was placed. troponins 0.o4->0.09->0.01. She started complaining of central chest discomfort on day 4 along with dyspnea at rest, diaphoresis, anxiety. VSS upon evaluation. Exam was unremarkable, no EKG changes or elevation of enzymes noted. This was not thought to be chest discomfort of cardiac etiology, more likely due to a combination of severe anxiety and her preexisting rib pain. She has had no arrhythmias on the monitor other than a paroxysm of atrial fibrillation. Consideration to be given for anticoagulation if she had any further paroxysms of atrial fibrillation. 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 They do not feel she has a vegetation/endocarditis. Patient showed follow up with Wesley House MD (cardiology) after discharge. Problem List: 1) Presyncope/syncope: No events overnight. The patient continues to be in sinus rhythm. Trops x 3 WNL. No cause for the syncope noted. 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 She is to follow up with Dr. House on admission. 2) Urinary tract infection: Urinalysis at the time of admission was positive for nitrites and leukocyte esterase.patient was started on ceftriaxone. urine culture grew Escherichia coli , which was pansensitive. she was switched over to Augmentin 875 mg twice a day to complete a course of 5 days. 3) Rib fracture: Chest x-ray showed displaced right posterior fifth, sixth, seventh rib fractures. Fracture of right posterior eighth rib (nondisplaced), minimally displaced right lateral ninth rib fracture. CT also showed T11 compression fracture. pain was managed with lidocaine 5% patch, Tylenol for mild and moderate pain and morphine 4 mg IV every 4 when necessary for severe pain. she is to be discharged on MSIR 30 mg by mouth every 4 when necessary for moderate- to-severe pain. 4) Hypertension: Patient was continued on home amlodipine 10 mg by mouth daily 5) Osteoporosis: Status post bilateral total knee and shoulder arthroplasties. Continued on home vitamin D3 and calcium carbonate. 6) Constipation: Thought to be secondary to opioids that the patient was receiving for a fracture. Aggressive bowel regimen with MiraLAX, Senokot, Percocet was started. 7) GERD: Patient continued on home omeprazole 40 g by mouth daily 8) DVT prophylaxis: Subcutaneous heparin 9) CODE STATUS: Full code Problem List: 1. Rib fracture 2. UTI (urinary tract infection) 3. Fall Pain Ratin Pain Location: Bilateral ribs. Pain Goal: Pain 4 or less Pain Plan: per EMR Tomorrow's Labs & Rationales: None, to be discharged today. DVT/Prophylaxis: pharmacological Consulting Request: Consulting Specialty: Cardiology DOYLE QUINTERO MD 12/11/16 0942: Attending Review Statement Attending Statement Attending MD Statement: examined this patient, discuss w/resident/PA/HONEYCOMB DECAPPER, agreed w/resident/PA/HONEYCOMB DECAPPER, reviewed EMR data (avail), discussed with nursing, reviewed images Attending Assessment/Plan: Pt is feeling tired and weak overall. I explained to her that given her rib fractures and recent UTI that going to STR and getting her strength back is in her best interests. Her episode of chest pain yesterday was not associated with any tachycardia, tachypnea, O2 sat was okay and vital signs were okay. I think this is related to her rib fractures. At this point I think we should slowly taper the opiates, encourage aggressive incentive spirometry and aggressive physical therapy and out of bed.
[2016-12-11 08:41] VITALS: BP 156/72
[2016-12-11] MEDS ORDERED: SENNA PLUS TAB1 EACH PO (09:01)
[2016-12-11] MEDS ORDERED: MIRALAX119 GM PO (09:01)
[2016-12-11] MEDS ORDERED: MORPHINE SULFAT15 M4 PO ×2 (09:03→09:05)
[2016-12-11 11:16] VITALS: BP 156/72
== END 2016-12-11 12:51 | DRG 690 ==
LOC: ENRESERVDT → ENRESERVTM → ERH 21:07 → 1NO 12-06 00:10 → ENPENDDIS 12-06 00:10 → ERHI 12-06 00:10 → 1NO 12-06 00:10 → 2NA 12-06 01:30 → 1NO 12-06 02:29
PROVIDERS: Emergency Medicine; Internal Medicine; Internal Medicine Hematology & Oncology; Pediatrics; Student in an Organized Health Care Education/Training Program; ADMIT Internal Medicine
DX: N39.0 Urinary tract infection, site not specified (principal); S22.089A Unspecified fracture of T11-T12 vertebra, initial encounter for closed fracture; I48.0 Paroxysmal atrial fibrillation; S22.31XA Fracture of one rib, right side, initial encounter for closed fracture; R55 Syncope and collapse; I10 Essential (primary) hypertension; B96.20 Unspecified Escherichia coli [E. coli] as the cause of diseases classified elsewhere; K21.9 Gastro-esophageal reflux disease without esophagitis; R26.81 Unsteadiness on feet; M81.0 Age-related osteoporosis without current pathological fracture
CPT/HCPCS: 1NSP; 36415; 74176; 81001; 82436; 87086; 93005; 93010; 93306; 96374; 96376; 97001-GP; 97110-GO; 97116-GO; 97530-GO; J0696; J1644; J2270; J3490